=== PATIENT | female | born 1945 | race Hispanic/Latino ===

== ENCOUNTER 2020-05-31 13:55 | Inpatient (IN) | payer MEDICARE ==
[2020-05-31] MEDS ORDERED: ZIPRASIDONE MESYLATE 20 MG VIAL IM PRN (16:21)
[2020-05-31 18:35] LABS: Basophils # (Auto) 0.1 K/mm3 (0.0-0.1); Basophils % (Auto) 0.8 % (0.0-1.8); Eosinophils # (Auto) 0.1 K/mm3 (0.0-0.4); Eosinophils % (Auto) 1.4 % (0.0-4.3); Hematocrit 43.3 % (30.3-42.9); Hemoglobin 14.1 gm/dl (10.1-14.3); Lymphocytes % (Auto) 42.7 % (13.4-35.0); Mean Corpuscular HGB Conc 33 % (30-34); Mean Corpuscular Volume 95 fl (79-97); Monocytes # (Auto) 0.6 K/mm3 (0.0-0.8); Monocytes % (Auto) 8.3 % (0.0-7.3); Platelet Count 344 K/mm3 (140-440); Red Blood Count 4.54 M/mm3 (3.65-5.03); Red Cell Distribution Width 15.2 % (13.2-15.2)
[2020-05-31 18:46] LABS: Albumin 3.8 g/dL (3.9-5); BUN/Creatinine Ratio 16; Blood Urea Nitrogen 11 mg/dL (7-17); Calcium 9.1 mg/dL (8.4-10.2); Chol/HDL Ratio 3.01 %; HDL Cholesterol 72 mg/dL (40-59); Hemolysis Index 16; LDL Cholesterol,Direct 145 mg/dL (50-130)
[2020-05-31 18:47] LABS: Alanine Aminotransferase < 5 units/L (7-56)
[2020-05-31 19:32] LABS: Bacteria,Urine 1+ /HPF (Negative); Bilirubin,Urine NEG (Negative); Blood,Urine NEG (Negative); Color,Urine Yellow (Yellow); Mucus,Urine FEW /HPF; Protein,Urine <15 mg/dL mg/dL (Negative); Urobilinogen,Urine < 2.0 mg/dL (<2.0)
[2020-05-31] MEDS: traZODone 50 MG TAB PO SCH (21:44)
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
[2020-06-01] MEDS ORDERED: ALBUTEROL 2.5 MG/3 ML NEBU IH PRN (09:55)
[2020-06-01] MEDS: AMIODARONE 200 MG TAB PO SCH (10:56)
[2020-06-01] MEDS: APIXABAN 5 MG TAB PO SCH ×2 (10:56→21:12)
[2020-06-01] MEDS: CHOLECALCIFEROL (VIT D3) 1000 UNIT (25 mcg) TAB PO SCH (10:56)
[2020-06-01] MEDS: risperiDONE 0.25 MG TAB PO SCH ×2 (11:47→21:12)
[2020-06-01] MEDS: MULTIVITAMINS ,THERAPEUTIC TAB PO SCH (11:47)
[2020-06-01] MEDS: NICOTINE 21 MG/24 HR PATCH TD SCH (11:47)
[2020-06-01] MEDS: LORazepam 1 MG TAB PO SCH (11:47)
[2020-06-01] MEDS: buPROPion SR 150 MG TAB PO SCH (11:47)
--- NOTE | 2020-06-01 13:30 | Consultation ---
History of Present Illness - Reason for Consult Consult date: 06/01/20 Requesting physician: ROQUE MAYS - History of Present Illness 74 YO Female with Atrial Fib on Therapeutic Anticoagulation, Nicotine Dependence, Dementia, Bipolar Disorder admitted to [facility] for Psychiatric stabilization. Consult placed by Dr. Mays for medical management. Pt seen and evaluated in her room. Pt denies any complaints. No reported nursing events. Pt denies pain, fever, chills, or recent ill contacts. Past History Past Medical History: atrial fib, other (see hpi) Past Surgical History: No surgical history, Other (reviewed) Social history: , smoking Family history: no significant family history (reviewed) Medications and Allergies Allergies Allergy/AdvReac Type Severity Reaction Status Date / Time metoclopramide [From Reglan] Allergy Unknown Verified 05/31/20 14:38 Home Medications Medication Instructions Recorded Confirmed Last Taken Type Albuterol Sulfate [Proair 90 mcg INHALATION Q6H PRN 05/31/20 05/31/20 Unknown History Respiclick] Amiodarone [Cordarone 200 MG TAB] 200 mg PO DAILY 05/31/20 05/31/20 Unknown History Apixaban [Eliquis] 5 mg PO BID 05/31/20 05/31/20 Unknown History Cholecalciferol Vit D3 [Vitamin D3 1,000 units PO DAILY 05/31/20 05/31/20 Unknown History 1,000 UNIT TAB] LORazepam [Ativan] 1 mg PO DAILY 05/31/20 05/31/20 Unknown History Multivitamin Tab [Multiple Vitamin 1 each PO QDAY 05/31/20 05/31/20 Unknown History TAB (Theragran)] Nicotine [Habitrol] 21 mg TD QDAY 05/31/20 05/31/20 05/31/20 10:00 History buPROPion SR [Wellbutrin Sr] 150 mg PO QAM 05/31/20 05/31/20 Unknown History Active Meds: Active Medications Albuterol (Proventil) 2.5 mg IH Q4HRT PRN PRN Reason: Shortness Of Breath Amiodarone HCl (Cordarone) 200 mg PO DAILY [facility] Last Admin: 06/01/20 10:56 Dose: 200 mg Documented by: Apixaban (Eliquis) 5 mg PO BID [facility]; Protocol Last Admin: 06/01/20 10:56 Dose: 5 mg Documented by: Bupropion HCl (Wellbutrin Sr) 150 mg PO QAM [facility] Last Admin: 06/01/20 11:47 Dose: 150 mg Documented by: Cholecalciferol (Vitamin D3) 1,000 unit PO DAILY [facility] Last Admin: 06/01/20 10:56 Dose: 1,000 unit Documented by: Lorazepam (Ativan) 1 mg PO DAILY [facility] Last Admin: 06/01/20 11:47 Dose: 1 mg Documented by: Multivitamins (Theragran Tab) 1 each PO QDAY [facility] Last Admin: 06/01/20 11:47 Dose: 1 each Documented by: Nicotine (Habitrol) 21 mg TD QDAY [facility] Last Admin: 06/01/20 11:47 Dose: 21 mg Documented by: Risperidone (Risperdal) 0.25 mg PO BID [facility] Last Admin: 06/01/20 11:47 Dose: 0.25 mg Documented by: Trazodone HCl (Desyrel) 50 mg PO QHS [facility] Last Admin: 05/31/20 21:44 Dose: 50 mg Documented by: Ziprasidone (Geodon) 10 mg IM Q6H PRN PRN Reason: Agitation Review of Systems Constitutional: no weight loss, no weight gain, no fever, no chills Ears, nose, mouth and throat: no ear pain, no ear discharge, no tinnitis, no decreased hearing, no nose pain Breasts: no change in shape, no swelling, no mass Cardiovascular: no chest pain, no orthopnea, no palpitations, no rapid/irregular heart beat Respiratory: no cough, no cough with sputum, no excessive sputum, no hemoptysis Gastrointestinal: no nausea, no vomiting, no diarrhea, no constipation Genitourinary Female: no pelvic pain, no flank pain Rectal: no pain, no incontinence, no bleeding Musculoskeletal: no neck pain, no shooting arm pain, no arm numbness/tingling, no low back pain, no leg numbness/tingling Integumentary: no rash, no pruritis, no redness, no sores, no wounds Neurological: no paralysis, no tingling, no seizures Psychiatric: no anxiety, no change in sleep habits, no sleep disturbances, no insomnia, no hypersomnia Endocrine: no cold intolerance, no heat intolerance, no polyphagia, no excessive thirst, no polyuria Hematologic/Lymphatic: no easy bruising, no easy bleeding, no lymphadenopathy, no lymphedema Allergic/Immunologic: no urticaria, no allergic rhinitis, no persistent infections Exam - Constitutional Vitals: Temp Pulse Resp BP Pulse Ox 98.2 F 81 20 112/69 89 06/01/20 08:01 06/01/20 08:01 06/01/20 08:01 06/01/20 08:01 06/01/20 08:01 General appearance: Present: mild distress - EENT Eyes: Present: PERRL ENT: hearing intact, clear oral mucosa - Neck Neck: Present: supple, normal ROM - Respiratory Respiratory effort: normal Respiratory: bilateral: CTA - Cardiovascular Rhythm: irregularly irregular Heart Sounds: Present: S1 & S2. Absent: rub, click - Extremities Extremities: pulses symmetrical, No edema Peripheral Pulses: within normal limits - Abdominal General gastrointestinal: Present: soft, non-tender, non-distended, normal bowel sounds Female genitourinary: Present: normal - Integumentary Integumentary: Present: clear, warm, dry - Musculoskeletal Musculoskeletal: gait normal, strength equal bilaterally - Psychiatric Psychiatric: appropriate mood/affect, intact judgment & insight - Neurologic Neurologic: CNII-XII intact, moves all extremities Results - Labs CBC & Chem 7: 05/31/20 17:53 05/31/20 17:53 Labs: Abnormal lab results 05/31/20 05/31/20 05/31/20 Range/Units 17:53 17:53 18:12 Hct 43.3 H (30.3-42.9) % Lymph % (Auto) 42.7 H (13.4-35.0) % [place] % (Auto) 8.3 H (0.0-7.3) % Glucose 110 H (65-100) mg/dL POC Glucose 120 H (70-105) ALT < 5 L (7-56) units/L Albumin 3.8 L (3.9-5) g/dL Cholesterol 217 H (50-199) mg/dL LDL Cholesterol Direct 145 H (50-130) mg/dL HDL Cholesterol 72 H (40-59) mg/dL Assessment and Plan - Patient Problems (1) Atrial fibrillation Current Visit: Yes Status: Acute Qualifiers: Atrial fibrillation type: permanent Qualified Code(s): I48.21 - Permanent atrial fibrillation Plan to address problem: continue Therapeutic anticoagulation, Amiodarone for rate control, supportive care. (2) Nicotine dependence Current Visit: Yes Status: Acute Plan to address problem: Supportive care. smoking cessation, behavior change counseling
[2020-06-01] MEDS: traZODone 50 MG TAB PO SCH (21:11)
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
[2020-06-02] MEDS: risperiDONE 0.25 MG TAB PO SCH ×2 (10:22→22:03)
[2020-06-02] MEDS: MULTIVITAMINS ,THERAPEUTIC TAB PO SCH (10:22)
[2020-06-02] MEDS: buPROPion SR 150 MG TAB PO SCH (10:22)
[2020-06-02] MEDS: NICOTINE 21 MG/24 HR PATCH TD SCH (10:22)
[2020-06-02] MEDS: CHOLECALCIFEROL (VIT D3) 1000 UNIT (25 mcg) TAB PO SCH (12:36)
[2020-06-02] MEDS: APIXABAN 5 MG TAB PO SCH ×2 (12:36→22:03)
[2020-06-02] MEDS: AMIODARONE 200 MG TAB PO SCH (12:36)
[2020-06-02] MEDS: LORazepam 1 MG TAB PO SCH (12:42)
[2020-06-02] MEDS: traZODone 50 MG TAB PO SCH (22:03)
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
[2020-06-03] MEDS: NICOTINE 21 MG/24 HR PATCH TD SCH (09:32)
[2020-06-03] MEDS: LORazepam 1 MG TAB PO SCH (09:33)
[2020-06-03] MEDS: AMIODARONE 200 MG TAB PO SCH (09:33)
[2020-06-03] MEDS: buPROPion SR 150 MG TAB PO SCH (09:33)
[2020-06-03] MEDS: MULTIVITAMINS ,THERAPEUTIC TAB PO SCH (09:33)
[2020-06-03] MEDS: CHOLECALCIFEROL (VIT D3) 1000 UNIT (25 mcg) TAB PO SCH (09:33)
[2020-06-03] MEDS: APIXABAN 5 MG TAB PO SCH ×2 (09:33→21:19)
[2020-06-03] MEDS: risperiDONE 0.25 MG TAB PO SCH ×2 (09:33→21:19)
--- NOTE | 2020-06-03 14:27 | Progress Note ---
Assessment and Plan - Patient Problems (1) Atrial fibrillation Current Visit: Yes Status: Acute Qualifiers: Atrial fibrillation type: permanent Qualified Code(s): I48.21 - Permanent atrial fibrillation Plan to address problem: continue Therapeutic anticoagulation, Amiodarone for rate control, supportive care. (2) Nicotine dependence Current Visit: Yes Status: Acute Plan to address problem: Supportive care. smoking cessation, behavior change counseling History Interval history: 74 YO Female with Atrial Fib on Therapeutic Anticoagulation, Nicotine Dependence, Dementia, Bipolar Disorder. Pt seen and evaluated in the day room. Pt denies any complaints. No reported nursing events. Pt denies pain, fever, chills, or recent ill contacts. Patient is compliant with exam and interview. Hospitalist Physical - Constitutional Vitals: Temp Pulse Resp BP Pulse Ox 98.4 F 73 18 108/64 91 06/03/20 01:56 06/02/20 19:56 06/03/20 01:56 06/02/20 19:56 06/02/20 19:56 General appearance: Present: mild distress - EENT Eyes: Present: PERRL, EOM intact - Neck Neck: Present: supple - Respiratory Respiratory: bilateral: CTA - Cardiovascular Rhythm: regular Heart Sounds: Present: S1 & S2 - Extremities Extremities: no ischemia Peripheral Pulses: within normal limits - Abdominal General gastrointestinal: soft, non-tender, non-distended - Integumentary Integumentary: Present: clear, dry - Psychiatric Psychiatric: appropriate mood/affect, cooperative - Neurologic Neurologic: CNII-XII intact Results - Labs CBC & Chem 7: 05/31/20 17:53 05/31/20 17:53 Labs: Laboratory Last Values WBC 6.9 K/mm3 (4.5-11.0) 05/31/20 17:53 RBC 4.54 M/mm3 (3.65-5.03) 05/31/20 17:53 Hgb 14.1 gm/dl (10.1-14.3) 05/31/20 17:53 Hct 43.3 % (30.3-42.9) H 05/31/20 17:53 MCV 95 fl (79-97) 05/31/20 17:53 MCH 31 pg (28-32) 05/31/20 17:53 MCHC 33 % (30-34) 05/31/20 17:53 RDW 15.2 % (13.2-15.2) 05/31/20 17:53 Plt Count 344 K/mm3 (140-440) 05/31/20 17:53 Lymph % (Auto) 42.7 % (13.4-35.0) H 05/31/20 17:53 [place] % (Auto) 8.3 % (0.0-7.3) H 05/31/20 17:53 Eos % (Auto) 1.4 % (0.0-4.3) 05/31/20 17:53 Baso % (Auto) 0.8 % (0.0-1.8) 05/31/20 17:53 Lymph # 3.0 K/mm3 (1.2-5.4) 05/31/20 17:53 [place] # 0.6 K/mm3 (0.0-0.8) 05/31/20 17:53 Eos # 0.1 K/mm3 (0.0-0.4) 05/31/20 17:53 Baso # 0.1 K/mm3 (0.0-0.1) 05/31/20 17:53 Seg Neutrophils % 46.8 % (40.0-70.0) 05/31/20 17:53 Seg Neutrophils # 3.3 K/mm3 (1.8-7.7) 05/31/20 17:53 Sodium 138 mmol/L (137-145) 05/31/20 17:53 Potassium 4.3 mmol/L (3.6-5.0) 05/31/20 17:53 Chloride 100.8 mmol/L (98-107) 05/31/20 17:53 Carbon Dioxide 25 mmol/L (22-30) 05/31/20 17:53 Anion Gap 17 mmol/L 05/31/20 17:53 BUN 11 mg/dL (7-17) 05/31/20 17:53 Creatinine 0.7 mg/dL (0.7-1.2) 05/31/20 17:53 Estimated GFR > 60 ml/min 05/31/20 17:53 BUN/Creatinine Ratio 16 % 05/31/20 17:53 Glucose 110 mg/dL (65-100) H 05/31/20 17:53 POC Glucose 120 (70-105) H 05/31/20 18:12 Hemoglobin A1c 5.3 % (4-6) 05/31/20 17:53 Calcium 9.1 mg/dL (8.4-10.2) 05/31/20 17:53 Total Bilirubin 0.80 mg/dL (0.1-1.2) 05/31/20 17:53 AST 15 units/L (5-40) 05/31/20 17:53 ALT < 5 units/L (7-56) L 05/31/20 17:53 Alkaline Phosphatase 112 units/L (35-129) 05/31/20 17:53 Total Protein 6.6 g/dL (6.3-8.2) 05/31/20 17:53 Albumin 3.8 g/dL (3.9-5) L 05/31/20 17:53 Albumin/Globulin Ratio 1.4 % 05/31/20 17:53 Triglycerides 137 mg/dL (2-149) 05/31/20 17:53 Cholesterol 217 mg/dL (50-199) H 05/31/20 17:53 LDL Cholesterol Direct 145 mg/dL (50-130) H 05/31/20 17:53 HDL Cholesterol 72 mg/dL (40-59) H 05/31/20 17:53 Cholesterol/HDL Ratio 3.01 % 05/31/20 17:53 TSH 3.330 mlU/mL (0.270-4.200) 05/31/20 17:53 Urine Color Yellow (Yellow) 05/31/20 18:06 Urine Turbidity Clear (Clear) 05/31/20 18:06 Urine pH 5.0 (5.0-7.0) 05/31/20 18:06 Ur Specific [place] 1.014 (1.003-1.030) 05/31/20 18:06 Urine Protein <15 mg/dl mg/dL (Negative) 05/31/20 18:06 Urine Glucose (UA) Neg mg/dL (Negative) 05/31/20 18:06 Urine Ketones Neg mg/dL (Negative) 05/31/20 18:06 Urine Blood Neg (Negative) 05/31/20 18:06 Urine Nitrite Neg (Negative) 05/31/20 18:06 Urine Bilirubin Neg (Negative) 05/31/20 18:06 Urine Urobilinogen < 2.0 mg/dL (<2.0) 05/31/20 18:06 Ur Leukocyte Esterase Neg (Negative) 05/31/20 18:06 Urine WBC (Auto) 4.0 /HPF (0.0-6.0) 05/31/20 18:06 Urine RBC (Auto) 1.0 /HPF (0.0-6.0) 05/31/20 18:06 U Epithel Cells (Auto) 4.0 /HPF (0-13.0) 05/31/20 18:06 Urine Bacteria (Auto) 1+ /HPF (Negative) 05/31/20 18:06 Urine Mucus Few /HPF 05/31/20 18:06 [place]/IV: Voiding Method Toilet Active Medications - Current Medications Current Medications: Generic Name Dose Route Start Last Admin Trade Name Freq PRN Reason Stop Dose Admin Albuterol 2.5 mg 06/01/20 09:55 Proventil IH Q4HRT PRN Shortness Of Breath Amiodarone HCl 200 mg 06/01/20 10:00 06/03/20 09:33 Cordarone PO 200 mg DAILY [facility] Administration Apixaban 5 mg 06/01/20 10:00 06/03/20 09:33 Eliquis PO 5 mg BID [facility] Administration Protocol Bupropion HCl 150 mg 06/01/20 10:00 06/03/20 09:33 Wellbutrin Sr PO 150 mg QAM [facility] Administration Cholecalciferol 1,000 unit 06/01/20 11:00 06/03/20 09:33 Vitamin D3 PO 1,000 unit DAILY [facility] Administration Lorazepam 1 mg 06/01/20 10:00 06/03/20 09:33 Ativan PO 1 mg DAILY [facility] Administration Multivitamins 1 each 06/01/20 10:00 06/03/20 09:33 Theragran Tab PO 1 each QDAY [facility] Administration Nicotine 21 mg 06/01/20 10:00 06/03/20 09:32 Habitrol TD 21 mg QDAY [facility] Administration Risperidone 0.25 mg 06/01/20 10:00 06/03/20 09:33 Risperdal PO 0.25 mg BID [facility] Administration Trazodone HCl 50 mg 05/31/20 22:00 06/02/20 22:03 Desyrel PO 50 mg QHS [facility] Administration Ziprasidone 10 mg 05/31/20 16:21 Geodon IM Q6H PRN Agitation
[2020-06-03] MEDS: traZODone 50 MG TAB PO SCH (21:19)
--- NOTE | 2020-06-04 08:11 | Progress Note ---
Subjective Date of service: 06/04/20 Principal diagnosis: Dementia w/Behavioral Disturbance Subjective Comment: The patient's medical record was reviewed and the patient's progress was discussed with the nursing staff. During my interview with the patient she was sitting in the dayroom. She patient is a/o x 3. She is calm, cooperative and pleasant. She says her mood is "better." She denies SI/HI. She states, "no, I've given up on my . I aint gone kill him." The patient says she slept "well." Reason for continued inpatient treatment: The patient is improving, but recently expressed thoughts of wanting to kill her . Will continue to treat and stabilize to plan for a safe discharge. REVIEW OF SYSTEMS Constitutional: Negative for weight loss ENT: Negative for stridor Respiratory: Pos for cough All other systems reviewed and are negative, except respiratory MENTAL STATUS EXAMINATION General Appearance: Dressed appropriately Behavior: Calm, cooperative. Good eye contact Mood: "better" Affect: Congruent with stated mood Speech: Normal tone and pace Thought Process: Goal directed Thought Content: Suicidal Ideation: Denies Homicidal Ideation: Denies at present Hallucinations: Denies Delusions: Denies Insight and Judgment: Limited Memory/Cognition: Limited Assessment Bipolar Disorder w/o Psychotic Features Dementia with Behavioral Disturbance Treatment Plan Patient will be admitted for inpatient psychiatric evaluation, medication adjustment and close monitoring The patient's behavior, mood, sleep and appetite will be closely monitored. Patient will be enrolled in individual and group therapeutic sessions and encouraged to attend. Patient will be provided with a safe and structured environment. Patient's physical health needs will be addressed by the Hospitalist. Hospitalist Consulted Labs including CBC, CMP, Lipid profile and Hemoglobin A1C ordered Social Assessment will be completed and the Gold Leaf Laborer will work with patient and family to ensure a suitable and safe disposition Medication adjustment will be made as clinically indicated No changes made today Usual Wellness Amish/Preservation: - Start Trazodone 50 mg po QHS - Start Melatonin 5 mg po QHS to promote circadian rhythm This is to certify that Ginette Ahmadi is a 74 y/o female admitted for Bipolar Disorder and Dementia with Behavioral Disturbance and will be given treatment that will treat and improve her condition. The patient agreed on the treatment plan, understood the risk, benefit, alternative treatment, potential consequence of no treatment, and gave informed consent. Estimated period of time patient will need to remain in the hospital: [4] Plan for post-hospital care: [outpatient] Medications and Allergies Allergies Allergy/AdvReac Type Severity Reaction Status Date / Time metoclopramide [From Reglan] Allergy Unknown Verified 05/31/20 14:38 Home Medications Medication Instructions Recorded Confirmed Last Taken Type Albuterol Sulfate [Proair 90 mcg INHALATION Q6H PRN 05/31/20 05/31/20 Unknown History Respiclick] Amiodarone [Cordarone 200 MG TAB] 200 mg PO DAILY 05/31/20 05/31/20 Unknown History Apixaban [Eliquis] 5 mg PO BID 05/31/20 05/31/20 Unknown History Cholecalciferol Vit D3 [Vitamin D3 1,000 units PO DAILY 05/31/20 05/31/20 Unknown History 1,000 UNIT TAB] LORazepam [Ativan] 1 mg PO DAILY 05/31/20 05/31/20 Unknown History Multivitamin Tab [Multiple Vitamin 1 each PO QDAY 05/31/20 05/31/20 Unknown History TAB (Theragran)] Nicotine [Habitrol] 21 mg TD QDAY 05/31/20 05/31/20 05/31/20 10:00 History buPROPion SR [Wellbutrin Sr] 150 mg PO QAM 05/31/20 05/31/20 Unknown History Active Meds: Active Medications Albuterol (Proventil) 2.5 mg IH Q4HRT PRN PRN Reason: Shortness Of Breath Amiodarone HCl (Cordarone) 200 mg PO DAILY [facility] Last Admin: 06/03/20 09:33 Dose: 200 mg Documented by: Apixaban (Eliquis) 5 mg PO BID [facility]; Protocol Last Admin: 06/03/20 21:19 Dose: 5 mg Documented by: Bupropion HCl (Wellbutrin Sr) 150 mg PO QAM [facility] Last Admin: 06/03/20 09:33 Dose: 150 mg Documented by: Cholecalciferol (Vitamin D3) 1,000 unit PO DAILY [facility] Last Admin: 06/03/20 09:33 Dose: 1,000 unit Documented by: Lorazepam (Ativan) 1 mg PO DAILY [facility] Last Admin: 06/03/20 09:33 Dose: 1 mg Documented by: Multivitamins (Theragran Tab) 1 each PO QDAY [facility] Last Admin: 06/03/20 09:33 Dose: 1 each Documented by: Nicotine (Habitrol) 21 mg TD QDAY [facility] Last Admin: 06/03/20 09:32 Dose: 21 mg Documented by: Risperidone (Risperdal) 0.25 mg PO BID [facility] Last Admin: 06/03/20 21:19 Dose: 0.25 mg Documented by: Trazodone HCl (Desyrel) 50 mg PO QHS [facility] Last Admin: 06/03/20 21:19 Dose: 50 mg Documented by: Ziprasidone (Geodon) 10 mg IM Q6H PRN PRN Reason: Agitation Results - Results Labs/Vitals: Laboratory Last Values WBC 6.9 K/mm3 (4.5-11.0) 05/31/20 17:53 RBC 4.54 M/mm3 (3.65-5.03) 05/31/20 17:53 Hgb 14.1 gm/dl (10.1-14.3) 05/31/20 17:53 Hct 43.3 % (30.3-42.9) H 05/31/20 17:53 MCV 95 fl (79-97) 05/31/20 17:53 MCH 31 pg (28-32) 05/31/20 17:53 MCHC 33 % (30-34) 05/31/20 17:53 RDW 15.2 % (13.2-15.2) 05/31/20 17:53 Plt Count 344 K/mm3 (140-440) 05/31/20 17:53 Lymph % (Auto) 42.7 % (13.4-35.0) H 05/31/20 17:53 [place] % (Auto) 8.3 % (0.0-7.3) H 05/31/20 17:53 Eos % (Auto) 1.4 % (0.0-4.3) 05/31/20 17:53 Baso % (Auto) 0.8 % (0.0-1.8) 05/31/20 17:53 Lymph # 3.0 K/mm3 (1.2-5.4) 05/31/20 17:53 [place] # 0.6 K/mm3 (0.0-0.8) 05/31/20 17:53 Eos # 0.1 K/mm3 (0.0-0.4) 05/31/20 17:53 Baso # 0.1 K/mm3 (0.0-0.1) 05/31/20 17:53 Seg Neutrophils % 46.8 % (40.0-70.0) 05/31/20 17:53 Seg Neutrophils # 3.3 K/mm3 (1.8-7.7) 05/31/20 17:53 Sodium 138 mmol/L (137-145) 05/31/20 17:53 Potassium 4.3 mmol/L (3.6-5.0) 05/31/20 17:53 Chloride 100.8 mmol/L (98-107) 05/31/20 17:53 Carbon Dioxide 25 mmol/L (22-30) 05/31/20 17:53 Anion Gap 17 mmol/L 05/31/20 17:53 BUN 11 mg/dL (7-17) 05/31/20 17:53 Creatinine 0.7 mg/dL (0.7-1.2) 05/31/20 17:53 Estimated GFR > 60 ml/min 05/31/20 17:53 BUN/Creatinine Ratio 16 % 05/31/20 17:53 Glucose 110 mg/dL (65-100) H 05/31/20 17:53 POC Glucose 120 (70-105) H 05/31/20 18:12 Hemoglobin A1c 5.3 % (4-6) 05/31/20 17:53 Calcium 9.1 mg/dL (8.4-10.2) 05/31/20 17:53 Total Bilirubin 0.80 mg/dL (0.1-1.2) 05/31/20 17:53 AST 15 units/L (5-40) 05/31/20 17:53 ALT < 5 units/L (7-56) L 05/31/20 17:53 Alkaline Phosphatase 112 units/L (35-129) 05/31/20 17:53 Total Protein 6.6 g/dL (6.3-8.2) 05/31/20 17:53 Albumin 3.8 g/dL (3.9-5) L 05/31/20 17:53 Albumin/Globulin Ratio 1.4 % 05/31/20 17:53 Triglycerides 137 mg/dL (2-149) 05/31/20 17:53 Cholesterol 217 mg/dL (50-199) H 05/31/20 17:53 LDL Cholesterol Direct 145 mg/dL (50-130) H 05/31/20 17:53 HDL Cholesterol 72 mg/dL (40-59) H 05/31/20 17:53 Cholesterol/HDL Ratio 3.01 % 05/31/20 17:53 TSH 3.330 mlU/mL (0.270-4.200) 05/31/20 17:53 Urine Color Yellow (Yellow) 05/31/20 18:06 Urine Turbidity Clear (Clear) 05/31/20 18:06 Urine pH 5.0 (5.0-7.0) 05/31/20 18:06 Ur Specific [place] 1.014 (1.003-1.030) 05/31/20 18:06 Urine Protein <15 mg/dl mg/dL (Negative) 05/31/20 18:06 Urine Glucose (UA) Neg mg/dL (Negative) 05/31/20 18:06 Urine Ketones Neg mg/dL (Negative) 05/31/20 18:06 Urine Blood Neg (Negative) 05/31/20 18:06 Urine Nitrite Neg (Negative) 05/31/20 18:06 Urine Bilirubin Neg (Negative) 05/31/20 18:06 Urine Urobilinogen < 2.0 mg/dL (<2.0) 05/31/20 18:06 Ur Leukocyte Esterase Neg (Negative) 05/31/20 18:06 Urine WBC (Auto) 4.0 /HPF (0.0-6.0) 05/31/20 18:06 Urine RBC (Auto) 1.0 /HPF (0.0-6.0) 05/31/20 18:06 U Epithel Cells (Auto) 4.0 /HPF (0-13.0) 05/31/20 18:06 Urine Bacteria (Auto) 1+ /HPF (Negative) 05/31/20 18:06 Urine Mucus Few /HPF 05/31/20 18:06 Last Vital Signs Temp 98.5 F 06/03/20 22:00 Pulse 83 06/03/20 22:00 Resp 18 06/03/20 22:00 BP 135/54 06/03/20 22:00 Pulse Ox 95 06/03/20 22:00
[2020-06-04] MEDS: NICOTINE 21 MG/24 HR PATCH TD SCH (09:36)
[2020-06-04] MEDS: CHOLECALCIFEROL (VIT D3) 1000 UNIT (25 mcg) TAB PO SCH (09:37)
[2020-06-04] MEDS: LORazepam 1 MG TAB PO SCH (09:37)
[2020-06-04] MEDS: MULTIVITAMINS ,THERAPEUTIC TAB PO SCH (09:37)
[2020-06-04] MEDS: risperiDONE 0.25 MG TAB PO SCH ×2 (09:37→21:42)
[2020-06-04] MEDS: APIXABAN 5 MG TAB PO SCH ×2 (09:37→21:42)
[2020-06-04] MEDS: buPROPion SR 150 MG TAB PO SCH (09:37)
[2020-06-04] MEDS: AMIODARONE 200 MG TAB PO SCH (09:37)
[2020-06-04] MEDS: traZODone 50 MG TAB PO SCH (22:21)
--- NOTE | 2020-06-05 07:17 | Progress Note ---
Subjective Date of service: 06/05/20 Principal diagnosis: Dementia w/Behavioral Disturbance Subjective Comment: Nurse Note: Patient sit in the activity room, interacting well with her peers. Pt compliant with medications, denies si/hi and avh. 02 sat at 96% on room air. No acute distress noted. Will continue to monitor. PSYCH HPI Pleasant miss Morfin reports feeling good today, thou complained about only getting 3-4 hours of sleep otherwise, good appetite, and compliant with her medications. Patient also knows it May 2020, asked questions about when she can be discharged home. Reason for continued inpatient treatment: Poor sleep pattern, otherwise patient behavior has been stable without any disturbances reported, compliant with all medications. Will plan with team about safety discharge plans tomorrow. MENTAL STATUS EXAMINATION General Appearance and Behavior: Age appropriate, good hygiene, wearing appropriate clothes, l good eye contact, cooperative politewith questioning. Cooperation: Participating/engaged Psychomotor Behavior: unremarkable and within normal limits Mood: Good Affect and affective range: congruent with mood Thought Process: Logical Thought Content: Within reality Speech: Normal volume, Regular rate and rhythm Intellectual Functioning: Average Suicidal Ideation: Denies SI Homicidal Ideation: Denies HI Impulse Control:Unimpaired Insight and Judgment: Normal insight and judgment Memory: ferry terminal supervisor memory intact, fair short term memory Attention: Normal Orientation: Alert, oriented Diagnoses: Assessment and Plan - Patient Problems (1) Dementia with behavioral disturbance Current Visit: Yes Status: Acute Treatment Plan melatonin 10 mg QHS. Continue current medications Patient will be admitted for inpatient psychiatric evaluation, medication adjustment and close monitoring The patient's behavior, mood, sleep and appetite will be closely monitored. Patient will be enrolled in individual and group therapeutic sessions and encouraged to attend. Patient will be provided with a safe and structured environment. Patient's physical health needs will be addressed by the Hospitalist. Hospitalist Consulted Labs including CBC, CMP, Lipid profile and Hemoglobin A1C ordered Social Assessment will be completed and the Second Officer will work with patient and family to ensure a suitable and safe disposition Medication adjustment will be made as clinically indicated Usual Wellness Buddhism/Preservation: - Start Trazodone 50 mg po QHS & 50 mg po QHS PRN between 10 PM & 2 AM for insomnia - Start Melatonin 5 mg po QHS to promote circadian rhythm - Start Bern-3 for brain health, reduce impulsivity, and as adjunctive treatment for mood disorder, continue upon discharge given overall benefits. - Start B1 prophylaxis with 200 mg po for 5 days The patient agreed on the treatment plan, understood the risk, benefit, alternative treatment, potential consequence of no treatment, and gave informed consent. Initial Certification This certifies that Galdino Peng is a 74y/o female who was admitted for Bipolar Disorder with Psychotic Features. Estimated period of time patient will need to remain in the hospital: [1] Plan for post-hospital care: [outpatient] Assessment and Plan - Patient Problems (1) Dementia with behavioral disturbance Current Visit: Yes Status: Acute Medications and Allergies Allergies Allergy/AdvReac Type Severity Reaction Status Date / Time metoclopramide [From Reglan] Allergy Unknown Verified 05/31/20 14:38 Home Medications Medication Instructions Recorded Confirmed Last Taken Type Albuterol Sulfate [Proair 90 mcg INHALATION Q6H PRN 05/31/20 05/31/20 Unknown History Respiclick] Amiodarone [Cordarone 200 MG TAB] 200 mg PO DAILY 05/31/20 05/31/20 Unknown History Apixaban [Eliquis] 5 mg PO BID 05/31/20 05/31/20 Unknown History Cholecalciferol Vit D3 [Vitamin D3 1,000 units PO DAILY 05/31/20 05/31/20 Unknown History 1,000 UNIT TAB] LORazepam [Ativan] 1 mg PO DAILY 05/31/20 05/31/20 Unknown History Multivitamin Tab [Multiple Vitamin 1 each PO QDAY 05/31/20 05/31/20 Unknown History TAB (Theragran)] Nicotine [Habitrol] 21 mg TD QDAY 05/31/20 05/31/20 05/31/20 10:00 History buPROPion SR [Wellbutrin Sr] 150 mg PO QAM 05/31/20 05/31/20 Unknown History Active Meds: Active Medications Albuterol (Proventil) 2.5 mg IH Q4HRT PRN PRN Reason: Shortness Of Breath Amiodarone HCl (Cordarone) 200 mg PO DAILY [facility] Last Admin: 06/04/20 09:37 Dose: 200 mg Documented by: Apixaban (Eliquis) 5 mg PO BID [facility]; Protocol Last Admin: 06/04/20 21:42 Dose: 5 mg Documented by: Bupropion HCl (Wellbutrin Sr) 150 mg PO QAM [facility] Last Admin: 06/04/20 09:37 Dose: 150 mg Documented by: Cholecalciferol (Vitamin D3) 1,000 unit PO DAILY [facility] Last Admin: 06/04/20 09:37 Dose: 1,000 unit Documented by: Lorazepam (Ativan) 1 mg PO DAILY [facility] Last Admin: 06/04/20 09:37 Dose: 1 mg Documented by: Multivitamins (Theragran Tab) 1 each PO QDAY [facility] Last Admin: 06/04/20 09:37 Dose: 1 each Documented by: Nicotine (Habitrol) 21 mg TD QDAY [facility] Last Admin: 06/04/20 09:36 Dose: 21 mg Documented by: Risperidone (Risperdal) 0.25 mg PO BID [facility] Last Admin: 06/04/20 21:42 Dose: 0.25 mg Documented by: Trazodone HCl (Desyrel) 50 mg PO QHS [facility] Last Admin: 06/04/20 22:21 Dose: Not Given Documented by: Ziprasidone (Geodon) 10 mg IM Q6H PRN PRN Reason: Agitation Results - Results Labs/Vitals: Laboratory Last Values WBC 6.9 K/mm3 (4.5-11.0) 05/31/20 17:53 RBC 4.54 M/mm3 (3.65-5.03) 05/31/20 17:53 Hgb 14.1 gm/dl (10.1-14.3) 05/31/20 17:53 Hct 43.3 % (30.3-42.9) H 05/31/20 17:53 MCV 95 fl (79-97) 05/31/20 17:53 MCH 31 pg (28-32) 05/31/20 17:53 MCHC 33 % (30-34) 05/31/20 17:53 RDW 15.2 % (13.2-15.2) 05/31/20 17:53 Plt Count 344 K/mm3 (140-440) 05/31/20 17:53 Lymph % (Auto) 42.7 % (13.4-35.0) H 05/31/20 17:53 [place] % (Auto) 8.3 % (0.0-7.3) H 05/31/20 17:53 Eos % (Auto) 1.4 % (0.0-4.3) 05/31/20 17:53 Baso % (Auto) 0.8 % (0.0-1.8) 05/31/20 17:53 Lymph # 3.0 K/mm3 (1.2-5.4) 05/31/20 17:53 [place] # 0.6 K/mm3 (0.0-0.8) 05/31/20 17:53 Eos # 0.1 K/mm3 (0.0-0.4) 05/31/20 17:53 Baso # 0.1 K/mm3 (0.0-0.1) 05/31/20 17:53 Seg Neutrophils % 46.8 % (40.0-70.0) 05/31/20 17:53 Seg Neutrophils # 3.3 K/mm3 (1.8-7.7) 05/31/20 17:53 Sodium 138 mmol/L (137-145) 05/31/20 17:53 Potassium 4.3 mmol/L (3.6-5.0) 05/31/20 17:53 Chloride 100.8 mmol/L (98-107) 05/31/20 17:53 Carbon Dioxide 25 mmol/L (22-30) 05/31/20 17:53 Anion Gap 17 mmol/L 05/31/20 17:53 BUN 11 mg/dL (7-17) 05/31/20 17:53 Creatinine 0.7 mg/dL (0.7-1.2) 05/31/20 17:53 Estimated GFR > 60 ml/min 05/31/20 17:53 BUN/Creatinine Ratio 16 % 05/31/20 17:53 Glucose 110 mg/dL (65-100) H 05/31/20 17:53 POC Glucose 120 (70-105) H 05/31/20 18:12 Hemoglobin A1c 5.3 % (4-6) 05/31/20 17:53 Calcium 9.1 mg/dL (8.4-10.2) 05/31/20 17:53 Total Bilirubin 0.80 mg/dL (0.1-1.2) 05/31/20 17:53 AST 15 units/L (5-40) 05/31/20 17:53 ALT < 5 units/L (7-56) L 05/31/20 17:53 Alkaline Phosphatase 112 units/L (35-129) 05/31/20 17:53 Total Protein 6.6 g/dL (6.3-8.2) 05/31/20 17:53 Albumin 3.8 g/dL (3.9-5) L 05/31/20 17:53 Albumin/Globulin Ratio 1.4 % 05/31/20 17:53 Triglycerides 137 mg/dL (2-149) 05/31/20 17:53 Cholesterol 217 mg/dL (50-199) H 05/31/20 17:53 LDL Cholesterol Direct 145 mg/dL (50-130) H 05/31/20 17:53 HDL Cholesterol 72 mg/dL (40-59) H 05/31/20 17:53 Cholesterol/HDL Ratio 3.01 % 05/31/20 17:53 TSH 3.330 mlU/mL (0.270-4.200) 05/31/20 17:53 Urine Color Yellow (Yellow) 05/31/20 18:06 Urine Turbidity Clear (Clear) 05/31/20 18:06 Urine pH 5.0 (5.0-7.0) 05/31/20 18:06 Ur Specific [place] 1.014 (1.003-1.030) 05/31/20 18:06 Urine Protein <15 mg/dl mg/dL (Negative) 05/31/20 18:06 Urine Glucose (UA) Neg mg/dL (Negative) 05/31/20 18:06 Urine Ketones Neg mg/dL (Negative) 05/31/20 18:06 Urine Blood Neg (Negative) 05/31/20 18:06 Urine Nitrite Neg (Negative) 05/31/20 18:06 Urine Bilirubin Neg (Negative) 05/31/20 18:06 Urine Urobilinogen < 2.0 mg/dL (<2.0) 05/31/20 18:06 Ur Leukocyte Esterase Neg (Negative) 05/31/20 18:06 Urine WBC (Auto) 4.0 /HPF (0.0-6.0) 05/31/20 18:06 Urine RBC (Auto) 1.0 /HPF (0.0-6.0) 05/31/20 18:06 U Epithel Cells (Auto) 4.0 /HPF (0-13.0) 05/31/20 18:06 Urine Bacteria (Auto) 1+ /HPF (Negative) 05/31/20 18:06 Urine Mucus Few /HPF 05/31/20 18:06 Last Vital Signs Temp 98.1 F 06/04/20 20:27 Pulse 75 06/04/20 20:27 Resp 18 06/04/20 20:27 BP 118/65 06/04/20 20:27 Pulse Ox 94 06/04/20 20:27
[2020-06-05] MEDS: buPROPion SR 150 MG TAB PO SCH (09:45)
[2020-06-05] MEDS: NICOTINE 21 MG/24 HR PATCH TD SCH (09:45)
[2020-06-05] MEDS: CHOLECALCIFEROL (VIT D3) 1000 UNIT (25 mcg) TAB PO SCH (09:45)
[2020-06-05] MEDS: MULTIVITAMINS ,THERAPEUTIC TAB PO SCH (09:45)
[2020-06-05] MEDS: risperiDONE 0.25 MG TAB PO SCH ×2 (09:45→21:04)
[2020-06-05] MEDS: LORazepam 1 MG TAB PO SCH (09:45)
[2020-06-05] MEDS: APIXABAN 5 MG TAB PO SCH ×2 (09:46→21:05)
[2020-06-05] MEDS: AMIODARONE 200 MG TAB PO SCH (09:46)
--- NOTE | 2020-06-05 18:50 | Progress Note ---
Assessment and Plan - Patient Problems (1) Atrial fibrillation Current Visit: Yes Status: Acute Qualifiers: Atrial fibrillation type: permanent Qualified Code(s): I48.21 - Permanent atrial fibrillation Plan to address problem: continue Therapeutic anticoagulation, Amiodarone for rate control, supportive care. (2) Nicotine dependence Current Visit: Yes Status: Acute Plan to address problem: Supportive care. smoking cessation, behavior change counseling History Interval history: 74 YO Female with Atrial Fib on Therapeutic Anticoagulation and rate control therapy with amiodarone, Nicotine Dependence, Dementia, Bipolar Disorder. Pt seen and evaluated in the day room today. Pt denies any complaints. Patient is resting comfortably. No reported nursing events. Pt denies pain. Patient is compliant with exam and interview. Hospitalist Physical - Constitutional Vitals: Temp Pulse Resp BP Pulse Ox 98.4 F 70 18 119/70 91 06/05/20 08:07 06/05/20 08:07 06/05/20 08:07 06/05/20 08:07 06/05/20 08:07 General appearance: Present: mild distress - EENT Eyes: Present: PERRL, EOM intact - Neck Neck: Present: supple - Respiratory Respiratory effort: normal Respiratory: bilateral: CTA - Cardiovascular Rhythm: irregularly irregular - Extremities Extremities: no ischemia Peripheral Pulses: within normal limits - Abdominal General gastrointestinal: soft, non-tender, non-distended - Integumentary Integumentary: Present: clear, dry - Psychiatric Psychiatric: cooperative - Neurologic Neurologic: CNII-XII intact Results - Labs CBC & Chem 7: 05/31/20 17:53 05/31/20 17:53 Labs: Laboratory Last Values WBC 6.9 K/mm3 (4.5-11.0) 05/31/20 17:53 RBC 4.54 M/mm3 (3.65-5.03) 05/31/20 17:53 Hgb 14.1 gm/dl (10.1-14.3) 05/31/20 17:53 Hct 43.3 % (30.3-42.9) H 05/31/20 17:53 MCV 95 fl (79-97) 05/31/20 17:53 MCH 31 pg (28-32) 05/31/20 17:53 MCHC 33 % (30-34) 05/31/20 17:53 RDW 15.2 % (13.2-15.2) 05/31/20 17:53 Plt Count 344 K/mm3 (140-440) 05/31/20 17:53 Lymph % (Auto) 42.7 % (13.4-35.0) H 05/31/20 17:53 [place] % (Auto) 8.3 % (0.0-7.3) H 05/31/20 17:53 Eos % (Auto) 1.4 % (0.0-4.3) 05/31/20 17:53 Baso % (Auto) 0.8 % (0.0-1.8) 05/31/20 17:53 Lymph # 3.0 K/mm3 (1.2-5.4) 05/31/20 17:53 [place] # 0.6 K/mm3 (0.0-0.8) 05/31/20 17:53 Eos # 0.1 K/mm3 (0.0-0.4) 05/31/20 17:53 Baso # 0.1 K/mm3 (0.0-0.1) 05/31/20 17:53 Seg Neutrophils % 46.8 % (40.0-70.0) 05/31/20 17:53 Seg Neutrophils # 3.3 K/mm3 (1.8-7.7) 05/31/20 17:53 Sodium 138 mmol/L (137-145) 05/31/20 17:53 Potassium 4.3 mmol/L (3.6-5.0) 05/31/20 17:53 Chloride 100.8 mmol/L (98-107) 05/31/20 17:53 Carbon Dioxide 25 mmol/L (22-30) 05/31/20 17:53 Anion Gap 17 mmol/L 05/31/20 17:53 BUN 11 mg/dL (7-17) 05/31/20 17:53 Creatinine 0.7 mg/dL (0.7-1.2) 05/31/20 17:53 Estimated GFR > 60 ml/min 05/31/20 17:53 BUN/Creatinine Ratio 16 % 05/31/20 17:53 Glucose 110 mg/dL (65-100) H 05/31/20 17:53 POC Glucose 120 (70-105) H 05/31/20 18:12 Hemoglobin A1c 5.3 % (4-6) 05/31/20 17:53 Calcium 9.1 mg/dL (8.4-10.2) 05/31/20 17:53 Total Bilirubin 0.80 mg/dL (0.1-1.2) 05/31/20 17:53 AST 15 units/L (5-40) 05/31/20 17:53 ALT < 5 units/L (7-56) L 05/31/20 17:53 Alkaline Phosphatase 112 units/L (35-129) 05/31/20 17:53 Total Protein 6.6 g/dL (6.3-8.2) 05/31/20 17:53 Albumin 3.8 g/dL (3.9-5) L 05/31/20 17:53 Albumin/Globulin Ratio 1.4 % 05/31/20 17:53 Triglycerides 137 mg/dL (2-149) 05/31/20 17:53 Cholesterol 217 mg/dL (50-199) H 05/31/20 17:53 LDL Cholesterol Direct 145 mg/dL (50-130) H 05/31/20 17:53 HDL Cholesterol 72 mg/dL (40-59) H 05/31/20 17:53 Cholesterol/HDL Ratio 3.01 % 05/31/20 17:53 TSH 3.330 mlU/mL (0.270-4.200) 05/31/20 17:53 Urine Color Yellow (Yellow) 05/31/20 18:06 Urine Turbidity Clear (Clear) 05/31/20 18:06 Urine pH 5.0 (5.0-7.0) 05/31/20 18:06 Ur Specific [place] 1.014 (1.003-1.030) 05/31/20 18:06 Urine Protein <15 mg/dl mg/dL (Negative) 05/31/20 18:06 Urine Glucose (UA) Neg mg/dL (Negative) 05/31/20 18:06 Urine Ketones Neg mg/dL (Negative) 05/31/20 18:06 Urine Blood Neg (Negative) 05/31/20 18:06 Urine Nitrite Neg (Negative) 05/31/20 18:06 Urine Bilirubin Neg (Negative) 05/31/20 18:06 Urine Urobilinogen < 2.0 mg/dL (<2.0) 05/31/20 18:06 Ur Leukocyte Esterase Neg (Negative) 05/31/20 18:06 Urine WBC (Auto) 4.0 /HPF (0.0-6.0) 05/31/20 18:06 Urine RBC (Auto) 1.0 /HPF (0.0-6.0) 05/31/20 18:06 U Epithel Cells (Auto) 4.0 /HPF (0-13.0) 05/31/20 18:06 Urine Bacteria (Auto) 1+ /HPF (Negative) 05/31/20 18:06 Urine Mucus Few /HPF 05/31/20 18:06 Negro/IV: Voiding Method Toilet Active Medications - Current Medications Current Medications: Generic Name Dose Route Start Last Admin Trade Name Freq PRN Reason Stop Dose Admin Albuterol 2.5 mg 06/01/20 09:55 Proventil IH Q4HRT PRN Shortness Of Breath Amiodarone HCl 200 mg 06/01/20 10:00 06/05/20 09:46 Cordarone PO 200 mg DAILY [facility] Administration Apixaban 5 mg 06/01/20 10:00 06/05/20 09:46 Eliquis PO 5 mg BID [facility] Administration Protocol Bupropion HCl 150 mg 06/01/20 10:00 06/05/20 09:45 Wellbutrin Sr PO 150 mg QAM [facility] Administration Cholecalciferol 1,000 unit 06/01/20 11:00 06/05/20 09:45 Vitamin D3 PO 1,000 unit DAILY [facility] Administration Lorazepam 1 mg 06/01/20 10:00 06/05/20 09:45 Ativan PO 1 mg DAILY [facility] Administration Melatonin 10 mg 06/05/20 22:00 Melatonin PO QHS [facility] Multivitamins 1 each 06/01/20 10:00 06/05/20 09:45 Theragran Tab PO 1 each QDAY [facility] Administration Nicotine 21 mg 06/01/20 10:00 06/05/20 09:45 Habitrol TD 21 mg QDAY [facility] Administration Risperidone 0.25 mg 06/01/20 10:00 06/05/20 09:45 Risperdal PO 0.25 mg BID [facility] Administration Trazodone HCl 50 mg 05/31/20 22:00 06/04/20 22:21 Desyrel PO Not Given QHS [facility] Ziprasidone 10 mg 05/31/20 16:21 Geodon IM Q6H PRN Agitation
--- NOTE | 2020-06-05 18:52 | Progress Note ---
Assessment and Plan - Patient Problems (1) Atrial fibrillation Current Visit: Yes Status: Acute Qualifiers: Atrial fibrillation type: permanent Qualified Code(s): I48.21 - Permanent atrial fibrillation Plan to address problem: continue Therapeutic anticoagulation, Amiodarone for rate control, supportive care. (2) Nicotine dependence Current Visit: Yes Status: Acute Plan to address problem: Supportive care. smoking cessation, behavior change counseling History Interval history: 74 YO Female with Atrial Fib on Therapeutic Anticoagulation and rate control therapy with Amiodarone, Nicotine Dependence, Dementia, Bipolar Disorder. Pt seen and evaluated in the day room. Pt denies any new complaints. Patient is resting comfortably. No reported nursing events. Pt denies pain. Patient is compliant with exam and interview. Hospitalist Physical - Constitutional Vitals: Temp Pulse Resp BP Pulse Ox 98.4 F 70 18 119/70 91 06/05/20 08:07 06/05/20 08:07 06/05/20 08:07 06/05/20 08:07 06/05/20 08:07 General appearance: Present: mild distress - EENT Eyes: Present: PERRL, EOM intact ENT: hearing intact - Neck Neck: Present: supple - Respiratory Respiratory effort: normal Respiratory: bilateral: CTA - Cardiovascular Rhythm: irregularly irregular - Extremities Extremities: no ischemia Peripheral Pulses: within normal limits - Abdominal General gastrointestinal: soft, non-tender, non-distended - Integumentary Integumentary: Present: clear, dry - Psychiatric Psychiatric: cooperative - Neurologic Neurologic: CNII-XII intact Results - Labs CBC & Chem 7: 05/31/20 17:53 05/31/20 17:53 Labs: Laboratory Last Values WBC 6.9 K/mm3 (4.5-11.0) 05/31/20 17:53 RBC 4.54 M/mm3 (3.65-5.03) 05/31/20 17:53 Hgb 14.1 gm/dl (10.1-14.3) 05/31/20 17:53 Hct 43.3 % (30.3-42.9) H 05/31/20 17:53 MCV 95 fl (79-97) 05/31/20 17:53 MCH 31 pg (28-32) 05/31/20 17:53 MCHC 33 % (30-34) 05/31/20 17:53 RDW 15.2 % (13.2-15.2) 05/31/20 17:53 Plt Count 344 K/mm3 (140-440) 05/31/20 17:53 Lymph % (Auto) 42.7 % (13.4-35.0) H 05/31/20 17:53 [place] % (Auto) 8.3 % (0.0-7.3) H 05/31/20 17:53 Eos % (Auto) 1.4 % (0.0-4.3) 05/31/20 17:53 Baso % (Auto) 0.8 % (0.0-1.8) 05/31/20 17:53 Lymph # 3.0 K/mm3 (1.2-5.4) 05/31/20 17:53 [place] # 0.6 K/mm3 (0.0-0.8) 05/31/20 17:53 Eos # 0.1 K/mm3 (0.0-0.4) 05/31/20 17:53 Baso # 0.1 K/mm3 (0.0-0.1) 05/31/20 17:53 Seg Neutrophils % 46.8 % (40.0-70.0) 05/31/20 17:53 Seg Neutrophils # 3.3 K/mm3 (1.8-7.7) 05/31/20 17:53 Sodium 138 mmol/L (137-145) 05/31/20 17:53 Potassium 4.3 mmol/L (3.6-5.0) 05/31/20 17:53 Chloride 100.8 mmol/L (98-107) 05/31/20 17:53 Carbon Dioxide 25 mmol/L (22-30) 05/31/20 17:53 Anion Gap 17 mmol/L 05/31/20 17:53 BUN 11 mg/dL (7-17) 05/31/20 17:53 Creatinine 0.7 mg/dL (0.7-1.2) 05/31/20 17:53 Estimated GFR > 60 ml/min 05/31/20 17:53 BUN/Creatinine Ratio 16 % 05/31/20 17:53 Glucose 110 mg/dL (65-100) H 05/31/20 17:53 POC Glucose 120 (70-105) H 05/31/20 18:12 Hemoglobin A1c 5.3 % (4-6) 05/31/20 17:53 Calcium 9.1 mg/dL (8.4-10.2) 05/31/20 17:53 Total Bilirubin 0.80 mg/dL (0.1-1.2) 05/31/20 17:53 AST 15 units/L (5-40) 05/31/20 17:53 ALT < 5 units/L (7-56) L 05/31/20 17:53 Alkaline Phosphatase 112 units/L (35-129) 05/31/20 17:53 Total Protein 6.6 g/dL (6.3-8.2) 05/31/20 17:53 Albumin 3.8 g/dL (3.9-5) L 05/31/20 17:53 Albumin/Globulin Ratio 1.4 % 05/31/20 17:53 Triglycerides 137 mg/dL (2-149) 05/31/20 17:53 Cholesterol 217 mg/dL (50-199) H 05/31/20 17:53 LDL Cholesterol Direct 145 mg/dL (50-130) H 05/31/20 17:53 HDL Cholesterol 72 mg/dL (40-59) H 05/31/20 17:53 Cholesterol/HDL Ratio 3.01 % 05/31/20 17:53 TSH 3.330 mlU/mL (0.270-4.200) 05/31/20 17:53 Urine Color Yellow (Yellow) 05/31/20 18:06 Urine Turbidity Clear (Clear) 05/31/20 18:06 Urine pH 5.0 (5.0-7.0) 05/31/20 18:06 Ur Specific [place] 1.014 (1.003-1.030) 05/31/20 18:06 Urine Protein <15 mg/dl mg/dL (Negative) 05/31/20 18:06 Urine Glucose (UA) Neg mg/dL (Negative) 05/31/20 18:06 Urine Ketones Neg mg/dL (Negative) 05/31/20 18:06 Urine Blood Neg (Negative) 05/31/20 18:06 Urine Nitrite Neg (Negative) 05/31/20 18:06 Urine Bilirubin Neg (Negative) 05/31/20 18:06 Urine Urobilinogen < 2.0 mg/dL (<2.0) 05/31/20 18:06 Ur Leukocyte Esterase Neg (Negative) 05/31/20 18:06 Urine WBC (Auto) 4.0 /HPF (0.0-6.0) 05/31/20 18:06 Urine RBC (Auto) 1.0 /HPF (0.0-6.0) 05/31/20 18:06 U Epithel Cells (Auto) 4.0 /HPF (0-13.0) 05/31/20 18:06 Urine Bacteria (Auto) 1+ /HPF (Negative) 05/31/20 18:06 Urine Mucus Few /HPF 05/31/20 18:06 Negro/IV: Voiding Method Toilet Active Medications - Current Medications Current Medications: Generic Name Dose Route Start Last Admin Trade Name Freq PRN Reason Stop Dose Admin Albuterol 2.5 mg 06/01/20 09:55 Proventil IH Q4HRT PRN Shortness Of Breath Amiodarone HCl 200 mg 06/01/20 10:00 06/05/20 09:46 Cordarone PO 200 mg DAILY [facility] Administration Apixaban 5 mg 06/01/20 10:00 06/05/20 09:46 Eliquis PO 5 mg BID [facility] Administration Protocol Bupropion HCl 150 mg 06/01/20 10:00 06/05/20 09:45 Wellbutrin Sr PO 150 mg QAM [facility] Administration Cholecalciferol 1,000 unit 06/01/20 11:00 06/05/20 09:45 Vitamin D3 PO 1,000 unit DAILY [facility] Administration Lorazepam 1 mg 06/01/20 10:00 06/05/20 09:45 Ativan PO 1 mg DAILY [facility] Administration Melatonin 10 mg 06/05/20 22:00 Melatonin PO QHS [facility] Multivitamins 1 each 06/01/20 10:00 06/05/20 09:45 Theragran Tab PO 1 each QDAY [facility] Administration Nicotine 21 mg 06/01/20 10:00 06/05/20 09:45 Habitrol TD 21 mg QDAY [facility] Administration Risperidone 0.25 mg 06/01/20 10:00 06/05/20 09:45 Risperdal PO 0.25 mg BID [facility] Administration Trazodone HCl 50 mg 05/31/20 22:00 06/04/20 22:21 Desyrel PO Not Given QHS [facility] Ziprasidone 10 mg 05/31/20 16:21 Geodon IM Q6H PRN Agitation
[2020-06-05] MEDS: traZODone 50 MG TAB PO SCH (21:04)
[2020-06-05] MEDS: MELATONIN 5 MG TAB PO SCH (21:04)
--- NOTE | 2020-06-06 07:15 | Progress Note ---
Subjective Date of service: 06/06/20 Principal diagnosis: Dementia w/Behavioral Disturbance Subjective Comment: Nurse Note: Patient sit in the activity room, interacting well with her peers. Pt compliant with medications, denies si/hi and avh. Pt voiced feeling much better today. No acute distress noted. Will continue to monitor. PSYCH HPI Patient seen this AM, reports doing very well and feeling good but has been bored over the weekend because there was nothing interesting to do otherwise she denies having any other complaints. Reason for continued inpatient treatment: Planning for safety discharge today. MENTAL STATUS EXAMINATION General Appearance and Behavior: Age appropriate, good hygiene, wearing appropriate clothes, l good eye contact, cooperative politewith questioning. Cooperation: Participating/engaged Psychomotor Behavior: unremarkable and within normal limits Mood: Good Affect and affective range: congruent with mood Thought Process: Logical Thought Content: Within reality Speech: Normal volume, Regular rate and rhythm Intellectual Functioning: Average Suicidal Ideation: Denies SI Homicidal Ideation: Denies HI Impulse Control:Unimpaired Insight and Judgment: Normal insight and judgment Memory: extermination inspector memory intact, fair short term memory Attention: Normal Orientation: Alert, oriented Diagnoses: Assessment and Plan - Patient Problems (1) Dementia with behavioral disturbance Current Visit: Yes Status: Acute Treatment Plan melatonin 10 mg QHS. Continue current medications Patient will be admitted for inpatient psychiatric evaluation, medication adjustment and close monitoring The patient's behavior, mood, sleep and appetite will be closely monitored. Patient will be enrolled in individual and group therapeutic sessions and encouraged to attend. Patient will be provided with a safe and structured environment. Patient's physical health needs will be addressed by the Hospitalist. Hospitalist Consulted Labs including CBC, CMP, Lipid profile and Hemoglobin A1C ordered Social Assessment will be completed and the Oil Scout will work with patient and family to ensure a suitable and safe disposition Medication adjustment will be made as clinically indicated Usual Wellness [facility]/Preservation: - Start Trazodone 50 mg po QHS & 50 mg po QHS PRN between 10 PM & 2 AM for insomnia - Start Melatonin 5 mg po QHS to promote circadian rhythm - Start [place]-3 for brain health, reduce impulsivity, and as adjunctive treatment for mood disorder, continue upon discharge given overall benefits. - Start B1 prophylaxis with 200 mg po for 5 days The patient agreed on the treatment plan, understood the risk, benefit, alternative treatment, potential consequence of no treatment, and gave informed consent. Initial Certification This certifies that Galdino Peng is a 74y/o female who was admitted for Bipolar Disorder with Psychotic Features. Estimated period of time patient will need to remain in the hospital: [0] Plan for post-hospital care: [outpatient] Assessment and Plan - Patient Problems (1) Dementia with behavioral disturbance Current Visit: Yes Status: Acute Medications and Allergies Allergies Allergy/AdvReac Type Severity Reaction Status Date / Time metoclopramide [From Reglan] Allergy Unknown Verified 05/31/20 14:38 Home Medications Medication Instructions Recorded Confirmed Last Taken Type Albuterol Sulfate [Proair 90 mcg INHALATION Q6H PRN 05/31/20 05/31/20 Unknown History Respiclick] Amiodarone [Cordarone 200 MG TAB] 200 mg PO DAILY 05/31/20 05/31/20 Unknown History Apixaban [Eliquis] 5 mg PO BID 05/31/20 05/31/20 Unknown History Cholecalciferol Vit D3 [Vitamin D3 1,000 units PO DAILY 05/31/20 05/31/20 Unknown History 1,000 UNIT TAB] LORazepam [Ativan] 1 mg PO DAILY 05/31/20 05/31/20 Unknown History Multivitamin Tab [Multiple Vitamin 1 each PO QDAY 05/31/20 05/31/20 Unknown History TAB (Theragran)] Nicotine [Habitrol] 21 mg TD QDAY 05/31/20 05/31/20 05/31/20 10:00 History buPROPion SR [Wellbutrin Sr] 150 mg PO QAM 05/31/20 05/31/20 Unknown History Active Meds: Active Medications Albuterol (Proventil) 2.5 mg IH Q4HRT PRN PRN Reason: Shortness Of Breath Amiodarone HCl (Cordarone) 200 mg PO DAILY [facility] Last Admin: 06/05/20 09:46 Dose: 200 mg Documented by: Apixaban (Eliquis) 5 mg PO BID [facility]; Protocol Last Admin: 06/05/20 21:05 Dose: 5 mg Documented by: Bupropion HCl (Wellbutrin Sr) 150 mg PO QAM [facility] Last Admin: 06/05/20 09:45 Dose: 150 mg Documented by: Cholecalciferol (Vitamin D3) 1,000 unit PO DAILY [facility] Last Admin: 06/05/20 09:45 Dose: 1,000 unit Documented by: Lorazepam (Ativan) 1 mg PO DAILY [facility] Last Admin: 06/05/20 09:45 Dose: 1 mg Documented by: Melatonin (Melatonin) 10 mg PO QHS [facility] Last Admin: 06/05/20 21:04 Dose: 10 mg Documented by: Multivitamins (Theragran Tab) 1 each PO QDAY [facility] Last Admin: 06/05/20 09:45 Dose: 1 each Documented by: Nicotine (Habitrol) 21 mg TD QDAY [facility] Last Admin: 06/05/20 09:45 Dose: 21 mg Documented by: Risperidone (Risperdal) 0.25 mg PO BID [facility] Last Admin: 06/05/20 21:04 Dose: 0.25 mg Documented by: Trazodone HCl (Desyrel) 50 mg PO QHS [facility] Last Admin: 06/05/20 21:04 Dose: 50 mg Documented by: Ziprasidone (Geodon) 10 mg IM Q6H PRN PRN Reason: Agitation Results - Results Labs/Vitals: Laboratory Last Values WBC 6.9 K/mm3 (4.5-11.0) 05/31/20 17:53 RBC 4.54 M/mm3 (3.65-5.03) 05/31/20 17:53 Hgb 14.1 gm/dl (10.1-14.3) 05/31/20 17:53 Hct 43.3 % (30.3-42.9) H 05/31/20 17:53 MCV 95 fl (79-97) 05/31/20 17:53 MCH 31 pg (28-32) 05/31/20 17:53 MCHC 33 % (30-34) 05/31/20 17:53 RDW 15.2 % (13.2-15.2) 05/31/20 17:53 Plt Count 344 K/mm3 (140-440) 05/31/20 17:53 Lymph % (Auto) 42.7 % (13.4-35.0) H 05/31/20 17:53 [place] % (Auto) 8.3 % (0.0-7.3) H 05/31/20 17:53 Eos % (Auto) 1.4 % (0.0-4.3) 05/31/20 17:53 Baso % (Auto) 0.8 % (0.0-1.8) 05/31/20 17:53 Lymph # 3.0 K/mm3 (1.2-5.4) 05/31/20 17:53 [place] # 0.6 K/mm3 (0.0-0.8) 05/31/20 17:53 Eos # 0.1 K/mm3 (0.0-0.4) 05/31/20 17:53 Baso # 0.1 K/mm3 (0.0-0.1) 05/31/20 17:53 Seg Neutrophils % 46.8 % (40.0-70.0) 05/31/20 17:53 Seg Neutrophils # 3.3 K/mm3 (1.8-7.7) 05/31/20 17:53 Sodium 138 mmol/L (137-145) 05/31/20 17:53 Potassium 4.3 mmol/L (3.6-5.0) 05/31/20 17:53 Chloride 100.8 mmol/L (98-107) 05/31/20 17:53 Carbon Dioxide 25 mmol/L (22-30) 05/31/20 17:53 Anion Gap 17 mmol/L 05/31/20 17:53 BUN 11 mg/dL (7-17) 05/31/20 17:53 Creatinine 0.7 mg/dL (0.7-1.2) 05/31/20 17:53 Estimated GFR > 60 ml/min 05/31/20 17:53 BUN/Creatinine Ratio 16 % 05/31/20 17:53 Glucose 110 mg/dL (65-100) H 05/31/20 17:53 POC Glucose 120 (70-105) H 05/31/20 18:12 Hemoglobin A1c 5.3 % (4-6) 05/31/20 17:53 Calcium 9.1 mg/dL (8.4-10.2) 05/31/20 17:53 Total Bilirubin 0.80 mg/dL (0.1-1.2) 05/31/20 17:53 AST 15 units/L (5-40) 05/31/20 17:53 ALT < 5 units/L (7-56) L 05/31/20 17:53 Alkaline Phosphatase 112 units/L (35-129) 05/31/20 17:53 Total Protein 6.6 g/dL (6.3-8.2) 05/31/20 17:53 Albumin 3.8 g/dL (3.9-5) L 05/31/20 17:53 Albumin/Globulin Ratio 1.4 % 05/31/20 17:53 Triglycerides 137 mg/dL (2-149) 05/31/20 17:53 Cholesterol 217 mg/dL (50-199) H 05/31/20 17:53 LDL Cholesterol Direct 145 mg/dL (50-130) H 05/31/20 17:53 HDL Cholesterol 72 mg/dL (40-59) H 05/31/20 17:53 Cholesterol/HDL Ratio 3.01 % 05/31/20 17:53 TSH 3.330 mlU/mL (0.270-4.200) 05/31/20 17:53 Urine Color Yellow (Yellow) 05/31/20 18:06 Urine Turbidity Clear (Clear) 05/31/20 18:06 Urine pH 5.0 (5.0-7.0) 05/31/20 18:06 Ur Specific [place] 1.014 (1.003-1.030) 05/31/20 18:06 Urine Protein <15 mg/dl mg/dL (Negative) 05/31/20 18:06 Urine Glucose (UA) Neg mg/dL (Negative) 05/31/20 18:06 Urine Ketones Neg mg/dL (Negative) 05/31/20 18:06 Urine Blood Neg (Negative) 05/31/20 18:06 Urine Nitrite Neg (Negative) 05/31/20 18:06 Urine Bilirubin Neg (Negative) 05/31/20 18:06 Urine Urobilinogen < 2.0 mg/dL (<2.0) 05/31/20 18:06 Ur Leukocyte Esterase Neg (Negative) 05/31/20 18:06 Urine WBC (Auto) 4.0 /HPF (0.0-6.0) 05/31/20 18:06 Urine RBC (Auto) 1.0 /HPF (0.0-6.0) 05/31/20 18:06 U Epithel Cells (Auto) 4.0 /HPF (0-13.0) 05/31/20 18:06 Urine Bacteria (Auto) 1+ /HPF (Negative) 05/31/20 18:06 Urine Mucus Few /HPF 05/31/20 18:06 Last Vital Signs Temp 98.6 F 06/05/20 19:06 Pulse 78 06/05/20 19:06 Resp 18 06/05/20 19:06 BP 112/63 06/05/20 19:06 Pulse Ox 93 06/05/20 19:06
[2020-06-06] MEDS: NICOTINE 21 MG/24 HR PATCH TD SCH (09:13)
[2020-06-06] MEDS: LORazepam 1 MG TAB PO SCH (09:16)
[2020-06-06] MEDS: buPROPion SR 150 MG TAB PO SCH (09:16)
[2020-06-06] MEDS: risperiDONE 0.25 MG TAB PO SCH ×2 (09:16→21:16)
[2020-06-06] MEDS: APIXABAN 5 MG TAB PO SCH ×2 (09:16→21:16)
[2020-06-06] MEDS: MULTIVITAMINS ,THERAPEUTIC TAB PO SCH (09:16)
[2020-06-06] MEDS: AMIODARONE 200 MG TAB PO SCH (09:16)
--- NOTE | 2020-06-06 12:23 | XRay Report ---
CHEST 1 VIEW INDICATION / CLINICAL INFORMATION: Cough COMPARISON: None available. FINDINGS: SUPPORT DEVICES: None. HEART / MEDIASTINUM: No significant abnormality. LUNGS / PLEURA: No significant pulmonary or pleural abnormality. No pneumothorax. ADDITIONAL FINDINGS: Healed posttraumatic deformity identified within the proximal left humerus. IMPRESSION: 1. No acute findings. Signer Name: Nguyễn Macedo MD Signed: 06/06/2020 12:19 PM Workstation Name: [id number]
[2020-06-06] MEDS: CHOLECALCIFEROL (VIT D3) 1000 UNIT (25 mcg) TAB PO SCH (12:57)
[2020-06-06] MEDS: MELATONIN 5 MG TAB PO SCH (21:16)
[2020-06-06] MEDS: traZODone 50 MG TAB PO SCH (21:16)
--- NOTE | 2020-06-06 22:41 | Progress Note ---
Assessment and Plan - Patient Problems (1) Atrial fibrillation Current Visit: Yes Status: Acute Qualifiers: Atrial fibrillation type: permanent Qualified Code(s): I48.21 - Permanent atrial fibrillation Plan to address problem: continue Therapeutic anticoagulation, Amiodarone for rate control, supportive care. (2) Nicotine dependence Current Visit: Yes Status: Acute Plan to address problem: Supportive care. smoking cessation, behavior change counseling History Interval history: 74 YO Female with Atrial Fib on Therapeutic Anticoagulation and rate control therapy with Amiodarone, Nicotine Dependence, Dementia, Bipolar Disorder. Pt seen and evaluated in the day room. Pt denies any new complaints. Patient is resting comfortably. No reported nursing events. Pt denies pain. Patient is compliant with exam and interview. Hospitalist Physical - Constitutional Vitals: Temp Pulse Resp BP Pulse Ox 98.6 F 74 20 120/59 91 06/06/20 20:02 06/06/20 20:02 06/06/20 20:02 06/06/20 20:02 06/06/20 20:02 General appearance: Present: mild distress - EENT Eyes: Present: PERRL ENT: hearing intact - Neck Neck: Present: supple - Respiratory Respiratory: bilateral: CTA - Cardiovascular Rhythm: regular Heart Sounds: Present: S1 & S2 - Extremities Extremities: no ischemia Peripheral Pulses: within normal limits - Abdominal General gastrointestinal: soft, non-tender - Integumentary Integumentary: Present: clear, dry - Psychiatric Psychiatric: appropriate mood/affect, cooperative Results - Labs CBC & Chem 7: 05/31/20 17:53 05/31/20 17:53 Labs: Laboratory Last Values WBC 6.9 K/mm3 (4.5-11.0) 05/31/20 17:53 RBC 4.54 M/mm3 (3.65-5.03) 05/31/20 17:53 Hgb 14.1 gm/dl (10.1-14.3) 05/31/20 17:53 Hct 43.3 % (30.3-42.9) H 05/31/20 17:53 MCV 95 fl (79-97) 05/31/20 17:53 MCH 31 pg (28-32) 05/31/20 17:53 MCHC 33 % (30-34) 05/31/20 17:53 RDW 15.2 % (13.2-15.2) 05/31/20 17:53 Plt Count 344 K/mm3 (140-440) 05/31/20 17:53 Lymph % (Auto) 42.7 % (13.4-35.0) H 05/31/20 17:53 [place] % (Auto) 8.3 % (0.0-7.3) H 05/31/20 17:53 Eos % (Auto) 1.4 % (0.0-4.3) 05/31/20 17:53 Baso % (Auto) 0.8 % (0.0-1.8) 05/31/20 17:53 Lymph # 3.0 K/mm3 (1.2-5.4) 05/31/20 17:53 [place] # 0.6 K/mm3 (0.0-0.8) 05/31/20 17:53 Eos # 0.1 K/mm3 (0.0-0.4) 05/31/20 17:53 Baso # 0.1 K/mm3 (0.0-0.1) 05/31/20 17:53 Seg Neutrophils % 46.8 % (40.0-70.0) 05/31/20 17:53 Seg Neutrophils # 3.3 K/mm3 (1.8-7.7) 05/31/20 17:53 Sodium 138 mmol/L (137-145) 05/31/20 17:53 Potassium 4.3 mmol/L (3.6-5.0) 05/31/20 17:53 Chloride 100.8 mmol/L (98-107) 05/31/20 17:53 Carbon Dioxide 25 mmol/L (22-30) 05/31/20 17:53 Anion Gap 17 mmol/L 05/31/20 17:53 BUN 11 mg/dL (7-17) 05/31/20 17:53 Creatinine 0.7 mg/dL (0.7-1.2) 05/31/20 17:53 Estimated GFR > 60 ml/min 05/31/20 17:53 BUN/Creatinine Ratio 16 % 05/31/20 17:53 Glucose 110 mg/dL (65-100) H 05/31/20 17:53 POC Glucose 120 (70-105) H 05/31/20 18:12 Hemoglobin A1c 5.3 % (4-6) 05/31/20 17:53 Calcium 9.1 mg/dL (8.4-10.2) 05/31/20 17:53 Total Bilirubin 0.80 mg/dL (0.1-1.2) 05/31/20 17:53 AST 15 units/L (5-40) 05/31/20 17:53 ALT < 5 units/L (7-56) L 05/31/20 17:53 Alkaline Phosphatase 112 units/L (35-129) 05/31/20 17:53 Total Protein 6.6 g/dL (6.3-8.2) 05/31/20 17:53 Albumin 3.8 g/dL (3.9-5) L 05/31/20 17:53 Albumin/Globulin Ratio 1.4 % 05/31/20 17:53 Triglycerides 137 mg/dL (2-149) 05/31/20 17:53 Cholesterol 217 mg/dL (50-199) H 05/31/20 17:53 LDL Cholesterol Direct 145 mg/dL (50-130) H 05/31/20 17:53 HDL Cholesterol 72 mg/dL (40-59) H 05/31/20 17:53 Cholesterol/HDL Ratio 3.01 % 05/31/20 17:53 TSH 3.330 mlU/mL (0.270-4.200) 05/31/20 17:53 Urine Color Yellow (Yellow) 05/31/20 18:06 Urine Turbidity Clear (Clear) 05/31/20 18:06 Urine pH 5.0 (5.0-7.0) 05/31/20 18:06 Ur Specific [place] 1.014 (1.003-1.030) 05/31/20 18:06 Urine Protein <15 mg/dl mg/dL (Negative) 05/31/20 18:06 Urine Glucose (UA) Neg mg/dL (Negative) 05/31/20 18:06 Urine Ketones Neg mg/dL (Negative) 05/31/20 18:06 Urine Blood Neg (Negative) 05/31/20 18:06 Urine Nitrite Neg (Negative) 05/31/20 18:06 Urine Bilirubin Neg (Negative) 05/31/20 18:06 Urine Urobilinogen < 2.0 mg/dL (<2.0) 05/31/20 18:06 Ur Leukocyte Esterase Neg (Negative) 05/31/20 18:06 Urine WBC (Auto) 4.0 /HPF (0.0-6.0) 05/31/20 18:06 Urine RBC (Auto) 1.0 /HPF (0.0-6.0) 05/31/20 18:06 U Epithel Cells (Auto) 4.0 /HPF (0-13.0) 05/31/20 18:06 Urine Bacteria (Auto) 1+ /HPF (Negative) 05/31/20 18:06 Urine Mucus Few /HPF 05/31/20 18:06 Negro/IV: Voiding Method Toilet Active Medications - Current Medications Current Medications: Generic Name Dose Route Start Last Admin Trade Name Freq PRN Reason Stop Dose Admin Albuterol 2.5 mg 06/01/20 09:55 Proventil IH Q4HRT PRN Shortness Of Breath Amiodarone HCl 200 mg 06/01/20 10:00 06/06/20 09:16 Cordarone PO 200 mg DAILY [facility] Administration Apixaban 5 mg 06/01/20 10:00 06/06/20 21:16 Eliquis PO 5 mg BID [facility] Administration Protocol Bupropion HCl 150 mg 06/01/20 10:00 06/06/20 09:16 Wellbutrin Sr PO 150 mg QAM [facility] Administration Cholecalciferol 1,000 unit 06/01/20 11:00 06/06/20 12:57 Vitamin D3 PO 1,000 unit DAILY [facility] Administration Lorazepam 1 mg 06/01/20 10:00 06/06/20 09:16 Ativan PO 1 mg DAILY [facility] Administration Melatonin 10 mg 06/05/20 22:00 06/06/20 21:16 Melatonin PO 10 mg QHS [facility] Administration Multivitamins 1 each 06/01/20 10:00 06/06/20 09:16 Theragran Tab PO 1 each QDAY [facility] Administration Nicotine 21 mg 06/01/20 10:00 06/06/20 09:13 Habitrol TD 21 mg QDAY [facility] Administration Risperidone 0.25 mg 06/01/20 10:00 06/06/20 21:16 Risperdal PO 0.25 mg BID [facility] Administration Trazodone HCl 50 mg 05/31/20 22:00 06/06/20 21:16 Desyrel PO 50 mg QHS [facility] Administration Ziprasidone 10 mg 05/31/20 16:21 Geodon IM Q6H PRN Agitation
--- NOTE | 2020-06-07 07:23 | Progress Note ---
Subjective Date of service: 06/07/20 Principal diagnosis: Dementia w/Behavioral Disturbance Subjective Comment: Nurse Note: Patient remains pleasant and sociable with peers. She attended groups and participated well. She is medication compliant and exhibited appropriate behavior during Chest X-Ray on unit. Patient stated, "They can do all the x-rays they want but I'm not gonna stop smoking." She was reminded of consequences of smoking and Nicotine patch. Patient said, "I really just want to continue to smoke." Staff will continue to give positive encouragement. PSYCH HPI Patient seen this AM, smiley and asking when she would be going home. Patient says the only complaints she has is not having water in the sink in her room today because she couldnt wash her face, she denies SI, HI or AVH. Pt reports improved and stable mood and looking forward to leaving. Reason for continued inpatient treatment: Planning for discharge with social media marketer. MENTAL STATUS EXAMINATION General Appearance and Behavior: Age appropriate, good hygiene, wearing appropriate clothes, l good eye contact, cooperative politewith questioning. Cooperation: Participating/engaged Psychomotor Behavior: unremarkable and within normal limits Mood: Good Affect and affective range: congruent with mood Thought Process: Logical Thought Content: Within reality Speech: Normal volume, Regular rate and rhythm Intellectual Functioning: Average Suicidal Ideation: Denies SI Homicidal Ideation: Denies HI Impulse Control:Unimpaired Insight and Judgment: Normal insight and judgment Memory: long term care social worker memory intact, fair short term memory Attention: Normal Orientation: Alert, oriented Diagnoses: Assessment and Plan - Patient Problems (1) Dementia with behavioral disturbance Current Visit: Yes Status: Acute Treatment Plan melatonin 10 mg QHS. Continue current medications Patient will be admitted for inpatient psychiatric evaluation, medication adjustment and close monitoring The patient's behavior, mood, sleep and appetite will be closely monitored. Patient will be enrolled in individual and group therapeutic sessions and encouraged to attend. Patient will be provided with a safe and structured environment. Patient's physical health needs will be addressed by the Hospitalist. Hospitalist Consulted Labs including CBC, CMP, Lipid profile and Hemoglobin A1C ordered Social Assessment will be completed and the Lbd Teacher will work with patien t and family to ensure a suitable and safe disposition Medication adjustment will be made as clinically indicated Usual Wellness Restorationist/Preservation: - Start Trazodone 50 mg po QHS & 50 mg po QHS PRN between 10 PM & 2 AM for insomnia - Start Melatonin 5 mg po QHS to promote circadian rhythm - Start [place]-3 for brain health, reduce impulsivity, and as adjunctive treatment for mood disorder, continue upon discharge given overall benefits. - Start B1 prophylaxis with 200 mg po for 5 days The patient agreed on the treatment plan, understood the risk, benefit, alternative treatment, potential consequence of no treatment, and gave informed consent. Initial Certification This certifies that Galdino Peng is a 74y/o female who was admitted for Bipolar Disorder with Psychotic Features. Estimated period of time patient will need to remain in the hospital: [0] Plan for post-hospital care: [outpatient] Assessment and Plan - Patient Problems (1) Dementia with behavioral disturbance Current Visit: Yes Status: Acute Medications and Allergies Allergies Allergy/AdvReac Type Severity Reaction Status Date / Time metoclopramide [From Reglan] Allergy Unknown Verified 05/31/20 14:38 Home Medications Medication Instructions Recorded Confirmed Last Taken Type Albuterol Sulfate [Proair 90 mcg INHALATION Q6H PRN 05/31/20 05/31/20 Unknown History Respiclick] Amiodarone [Cordarone 200 MG TAB] 200 mg PO DAILY 05/31/20 05/31/20 Unknown History Apixaban [Eliquis] 5 mg PO BID 05/31/20 05/31/20 Unknown History Cholecalciferol Vit D3 [Vitamin D3 1,000 units PO DAILY 05/31/20 05/31/20 Unknown History 1,000 UNIT TAB] LORazepam [Ativan] 1 mg PO DAILY 05/31/20 05/31/20 Unknown History Multivitamin Tab [Multiple Vitamin 1 each PO QDAY 05/31/20 05/31/20 Unknown History TAB (Theragran)] Nicotine [Habitrol] 21 mg TD QDAY 05/31/20 05/31/20 05/31/20 10:00 History buPROPion SR [Wellbutrin Sr] 150 mg PO QAM 05/31/20 05/31/20 Unknown History Active Meds: Active Medications Albuterol (Proventil) 2.5 mg IH Q4HRT PRN PRN Reason: Shortness Of Breath Amiodarone HCl (Cordarone) 200 mg PO DAILY [facility] Last Admin: 06/06/20 09:16 Dose: 200 mg Documented by: Apixaban (Eliquis) 5 mg PO BID [facility]; Protocol Last Admin: 06/06/20 21:16 Dose: 5 mg Documented by: Bupropion HCl (Wellbutrin Sr) 150 mg PO QAM [facility] Last Admin: 06/06/20 09:16 Dose: 150 mg Documented by: Cholecalciferol (Vitamin D3) 1,000 unit PO DAILY [facility] Last Admin: 06/06/20 12:57 Dose: 1,000 unit Documented by: Lorazepam (Ativan) 1 mg PO DAILY [facility] Last Admin: 06/06/20 09:16 Dose: 1 mg Documented by: Melatonin (Melatonin) 10 mg PO QHS [facility] Last Admin: 06/06/20 21:16 Dose: 10 mg Documented by: Multivitamins (Theragran Tab) 1 each PO QDAY [facility] Last Admin: 06/06/20 09:16 Dose: 1 each Documented by: Nicotine (Habitrol) 21 mg TD QDAY [facility] Last Admin: 06/06/20 09:13 Dose: 21 mg Documented by: Risperidone (Risperdal) 0.25 mg PO BID [facility] Last Admin: 06/06/20 21:16 Dose: 0.25 mg Documented by: Trazodone HCl (Desyrel) 50 mg PO QHS [facility] Last Admin: 06/06/20 21:16 Dose: 50 mg Documented by: Ziprasidone (Geodon) 10 mg IM Q6H PRN PRN Reason: Agitation Results - Results Labs/Vitals: Laboratory Last Values WBC 6.9 K/mm3 (4.5-11.0) 05/31/20 17:53 RBC 4.54 M/mm3 (3.65-5.03) 05/31/20 17:53 Hgb 14.1 gm/dl (10.1-14.3) 05/31/20 17:53 Hct 43.3 % (30.3-42.9) H 05/31/20 17:53 MCV 95 fl (79-97) 05/31/20 17:53 MCH 31 pg (28-32) 05/31/20 17:53 MCHC 33 % (30-34) 05/31/20 17:53 RDW 15.2 % (13.2-15.2) 05/31/20 17:53 Plt Count 344 K/mm3 (140-440) 05/31/20 17:53 Lymph % (Auto) 42.7 % (13.4-35.0) H 05/31/20 17:53 [place] % (Auto) 8.3 % (0.0-7.3) H 05/31/20 17:53 Eos % (Auto) 1.4 % (0.0-4.3) 05/31/20 17:53 Baso % (Auto) 0.8 % (0.0-1.8) 05/31/20 17:53 Lymph # 3.0 K/mm3 (1.2-5.4) 05/31/20 17:53 [place] # 0.6 K/mm3 (0.0-0.8) 05/31/20 17:53 Eos # 0.1 K/mm3 (0.0-0.4) 05/31/20 17:53 Baso # 0.1 K/mm3 (0.0-0.1) 05/31/20 17:53 Seg Neutrophils % 46.8 % (40.0-70.0) 05/31/20 17:53 Seg Neutrophils # 3.3 K/mm3 (1.8-7.7) 05/31/20 17:53 Sodium 138 mmol/L (137-145) 05/31/20 17:53 Potassium 4.3 mmol/L (3.6-5.0) 05/31/20 17:53 Chloride 100.8 mmol/L (98-107) 05/31/20 17:53 Carbon Dioxide 25 mmol/L (22-30) 05/31/20 17:53 Anion Gap 17 mmol/L 05/31/20 17:53 BUN 11 mg/dL (7-17) 05/31/20 17:53 Creatinine 0.7 mg/dL (0.7-1.2) 05/31/20 17:53 Estimated GFR > 60 ml/min 05/31/20 17:53 BUN/Creatinine Ratio 16 % 05/31/20 17:53 Glucose 110 mg/dL (65-100) H 05/31/20 17:53 POC Glucose 120 (70-105) H 05/31/20 18:12 Hemoglobin A1c 5.3 % (4-6) 05/31/20 17:53 Calcium 9.1 mg/dL (8.4-10.2) 05/31/20 17:53 Total Bilirubin 0.80 mg/dL (0.1-1.2) 05/31/20 17:53 AST 15 units/L (5-40) 05/31/20 17:53 ALT < 5 units/L (7-56) L 05/31/20 17:53 Alkaline Phosphatase 112 units/L (35-129) 05/31/20 17:53 Total Protein 6.6 g/dL (6.3-8.2) 05/31/20 17:53 Albumin 3.8 g/dL (3.9-5) L 05/31/20 17:53 Albumin/Globulin Ratio 1.4 % 05/31/20 17:53 Triglycerides 137 mg/dL (2-149) 05/31/20 17:53 Cholesterol 217 mg/dL (50-199) H 05/31/20 17:53 LDL Cholesterol Direct 145 mg/dL (50-130) H 05/31/20 17:53 HDL Cholesterol 72 mg/dL (40-59) H 05/31/20 17:53 Cholesterol/HDL Ratio 3.01 % 05/31/20 17:53 TSH 3.330 mlU/mL (0.270-4.200) 05/31/20 17:53 Urine Color Yellow (Yellow) 05/31/20 18:06 Urine Turbidity Clear (Clear) 05/31/20 18:06 Urine pH 5.0 (5.0-7.0) 05/31/20 18:06 Ur Specific [place] 1.014 (1.003-1.030) 05/31/20 18:06 Urine Protein <15 mg/dl mg/dL (Negative) 05/31/20 18:06 Urine Glucose (UA) Neg mg/dL (Negative) 05/31/20 18:06 Urine Ketones Neg mg/dL (Negative) 05/31/20 18:06 Urine Blood Neg (Negative) 05/31/20 18:06 Urine Nitrite Neg (Negative) 05/31/20 18:06 Urine Bilirubin Neg (Negative) 05/31/20 18:06 Urine Urobilinogen < 2.0 mg/dL (<2.0) 05/31/20 18:06 Ur Leukocyte Esterase Neg (Negative) 05/31/20 18:06 Urine WBC (Auto) 4.0 /HPF (0.0-6.0) 05/31/20 18:06 Urine RBC (Auto) 1.0 /HPF (0.0-6.0) 05/31/20 18:06 U Epithel Cells (Auto) 4.0 /HPF (0-13.0) 05/31/20 18:06 Urine Bacteria (Auto) 1+ /HPF (Negative) 05/31/20 18:06 Urine Mucus Few /HPF 05/31/20 18:06 Last Vital Signs Temp 98.6 F 06/06/20 20:02 Pulse 74 06/06/20 20:02 Resp 20 06/06/20 20:02 BP 120/59 06/06/20 20:02 Pulse Ox 91 06/06/20 20:02
[2020-06-07] MEDS: MULTIVITAMINS ,THERAPEUTIC TAB PO SCH (10:00)
[2020-06-07] MEDS: APIXABAN 5 MG TAB PO SCH ×2 (10:00→22:27)
[2020-06-07] MEDS: AMIODARONE 200 MG TAB PO SCH (10:00)
[2020-06-07] MEDS: CHOLECALCIFEROL (VIT D3) 1000 UNIT (25 mcg) TAB PO SCH (10:00)
[2020-06-07] MEDS: LORazepam 1 MG TAB PO SCH (10:00)
[2020-06-07] MEDS: buPROPion SR 150 MG TAB PO SCH (10:00)
[2020-06-07] MEDS: risperiDONE 0.25 MG TAB PO SCH ×2 (10:00→22:28)
[2020-06-07] MEDS: NICOTINE 21 MG/24 HR PATCH TD SCH (10:03)
[2020-06-07] MEDS: traZODone 50 MG TAB PO SCH (22:27)
[2020-06-07] MEDS: MELATONIN 5 MG TAB PO SCH (22:28)
--- NOTE | 2020-06-08 07:15 | Progress Note ---
Subjective Date of service: 06/08/20 Principal diagnosis: Dementia w/Behavioral Disturbance Subjective Comment: Nurse Note: Patient has been pleasant and cooperative. She interacted well with peers and attended all groups. Patient took all of her medication and ate 100% of meals. Patient denies S/H/I and hallucinations. PSYCH HPI Patient is seen this AM, reports doing just fine and would like to have more coffee if possible. Patient says she would like to go home, denies SI, HI and AVH. Reason for continued inpatient treatment: Planning for discharge today MENTAL STATUS EXAMINATION General Appearance and Behavior: Age appropriate, good hygiene, wearing appropriate clothes, l good eye contact, cooperative politewith questioning. Cooperation: Participating/engaged Psychomotor Behavior: unremarkable and within normal limits Mood: Good Affect and affective range: congruent with mood Thought Process: Logical Thought Content: Within reality Speech: Normal volume, Regular rate and rhythm Intellectual Functioning: Average Suicidal Ideation: Denies SI Homicidal Ideation: Denies HI Impulse Control: Unimpaired Insight and Judgment: Normal insight and judgment Memory: emt intermediate memory intact, fair short term memory Attention: Normal Orientation: Alert, oriented Diagnoses: Assessment and Plan - Patient Problems (1) Dementia with behavioral disturbance Current Visit: Yes Status: Acute Treatment Plan melatonin 10 mg QHS. Continue current medications Patient will be admitted for inpatient psychiatric evaluation, medication adjustment and close monitoring The patient's behavior, mood, sleep and appetite will be closely monitored. Patient will be enrolled in individual and group therapeutic sessions and encouraged to attend. Patient will be provided with a safe and structured environment. Patient's physical health needs will be addressed by the Hospitalist. Hospitalist Consulted Labs including CBC, CMP, Lipid profile and Hemoglobin A1C ordered Social Assessment will be completed and the Crop Specialist will work with patient and family to ensure a suitable and safe disposition Medication adjustment will be made as clinically indicated Usual Wellness Faith/Preservation: - Start Trazodone 50 mg po QHS & 50 mg po QHS PRN between 10 PM & 2 AM for insomnia - Start Melatonin 5 mg po QHS to promote circadian rhythm - Start [place]-3 for brain health, reduce impulsivity, and as adjunctive treatment for mood disorder, continue upon discharge given overall benefits. - Start B1 prophylaxis with 200 mg po for 5 days The patient agreed on the treatment plan, understood the risk, benefit, alternative treatment, potential consequence of no treatment, and gave informed consent. Initial Certification This certifies that Galdino Peng is a 74y/o female who was admitted for Bipolar Disorder with Psychotic Features. Estimated period of time patient will need to remain in the hospital: [0] Plan for post-hospital care: [outpatient] Assessment and Plan - Patient Problems (1) Dementia with behavioral disturbance Current Visit: Yes Status: Acute Medications and Allergies Allergies Allergy/AdvReac Type Severity Reaction Status Date / Time metoclopramide [From Reglan] Allergy Unknown Verified 05/31/20 14:38 Home Medications Medication Instructions Recorded Confirmed Last Taken Type Albuterol Sulfate [Proair 90 mcg INHALATION Q6H PRN 05/31/20 05/31/20 Unknown History Respiclick] Amiodarone [Cordarone 200 MG TAB] 200 mg PO DAILY 05/31/20 05/31/20 Unknown History Apixaban [Eliquis] 5 mg PO BID 05/31/20 05/31/20 Unknown History Cholecalciferol Vit D3 [Vitamin D3 1,000 units PO DAILY 05/31/20 05/31/20 Unknown History 1,000 UNIT TAB] LORazepam [Ativan] 1 mg PO DAILY 05/31/20 05/31/20 Unknown History Multivitamin Tab [Multiple Vitamin 1 each PO QDAY 05/31/20 05/31/20 Unknown History TAB (Theragran)] Nicotine [Habitrol] 21 mg TD QDAY 05/31/20 05/31/20 05/31/20 10:00 History buPROPion SR [Wellbutrin Sr] 150 mg PO QAM 05/31/20 05/31/20 Unknown History Active Meds: Active Medications Albuterol (Proventil) 2.5 mg IH Q4HRT PRN PRN Reason: Shortness Of Breath Amiodarone HCl (Cordarone) 200 mg PO DAILY [facility] Last Admin: 06/07/20 10:00 Dose: 200 mg Documented by: Apixaban (Eliquis) 5 mg PO BID [facility]; Protocol Last Admin: 06/07/20 22:27 Dose: 5 mg Documented by: Bupropion HCl (Wellbutrin Sr) 150 mg PO QAM [facility] Last Admin: 06/07/20 10:00 Dose: 150 mg Documented by: Cholecalciferol (Vitamin D3) 1,000 unit PO DAILY [facility] Last Admin: 06/07/20 10:00 Dose: 1,000 unit Documented by: Lorazepam (Ativan) 1 mg PO DAILY [facility] Last Admin: 06/07/20 10:00 Dose: 1 mg Documented by: Melatonin (Melatonin) 10 mg PO QHS [facility] Last Admin: 06/07/20 22:28 Dose: 10 mg Documented by: Multivitamins (Theragran Tab) 1 each PO QDAY [facility] Last Admin: 06/07/20 10:00 Dose: 1 each Documented by: Nicotine (Habitrol) 21 mg TD QDAY [facility] Last Admin: 06/07/20 10:03 Dose: 21 mg Documented by: Risperidone (Risperdal) 0.25 mg PO BID [facility] Last Admin: 06/07/20 22:28 Dose: 0.25 mg Documented by: Trazodone HCl (Desyrel) 50 mg PO QHS [facility] Last Admin: 06/07/20 22:27 Dose: 50 mg Documented by: Ziprasidone (Geodon) 10 mg IM Q6H PRN PRN Reason: Agitation Results - Results Labs/Vitals: Laboratory Last Values WBC 6.9 K/mm3 (4.5-11.0) 05/31/20 17:53 RBC 4.54 M/mm3 (3.65-5.03) 05/31/20 17:53 Hgb 14.1 gm/dl (10.1-14.3) 05/31/20 17:53 Hct 43.3 % (30.3-42.9) H 05/31/20 17:53 MCV 95 fl (79-97) 05/31/20 17:53 MCH 31 pg (28-32) 05/31/20 17:53 MCHC 33 % (30-34) 05/31/20 17:53 RDW 15.2 % (13.2-15.2) 05/31/20 17:53 Plt Count 344 K/mm3 (140-440) 05/31/20 17:53 Lymph % (Auto) 42.7 % (13.4-35.0) H 05/31/20 17:53 [place] % (Auto) 8.3 % (0.0-7.3) H 05/31/20 17:53 Eos % (Auto) 1.4 % (0.0-4.3) 05/31/20 17:53 Baso % (Auto) 0.8 % (0.0-1.8) 05/31/20 17:53 Lymph # 3.0 K/mm3 (1.2-5.4) 05/31/20 17:53 [place] # 0.6 K/mm3 (0.0-0.8) 05/31/20 17:53 Eos # 0.1 K/mm3 (0.0-0.4) 05/31/20 17:53 Baso # 0.1 K/mm3 (0.0-0.1) 05/31/20 17:53 Seg Neutrophils % 46.8 % (40.0-70.0) 05/31/20 17:53 Seg Neutrophils # 3.3 K/mm3 (1.8-7.7) 05/31/20 17:53 Sodium 138 mmol/L (137-145) 05/31/20 17:53 Potassium 4.3 mmol/L (3.6-5.0) 05/31/20 17:53 Chloride 100.8 mmol/L (98-107) 05/31/20 17:53 Carbon Dioxide 25 mmol/L (22-30) 05/31/20 17:53 Anion Gap 17 mmol/L 05/31/20 17:53 BUN 11 mg/dL (7-17) 05/31/20 17:53 Creatinine 0.7 mg/dL (0.7-1.2) 05/31/20 17:53 Estimated GFR > 60 ml/min 05/31/20 17:53 BUN/Creatinine Ratio 16 % 05/31/20 17:53 Glucose 110 mg/dL (65-100) H 05/31/20 17:53 POC Glucose 120 (70-105) H 05/31/20 18:12 Hemoglobin A1c 5.3 % (4-6) 05/31/20 17:53 Calcium 9.1 mg/dL (8.4-10.2) 05/31/20 17:53 Total Bilirubin 0.80 mg/dL (0.1-1.2) 05/31/20 17:53 AST 15 units/L (5-40) 05/31/20 17:53 ALT < 5 units/L (7-56) L 05/31/20 17:53 Alkaline Phosphatase 112 units/L (35-129) 05/31/20 17:53 Total Protein 6.6 g/dL (6.3-8.2) 05/31/20 17:53 Albumin 3.8 g/dL (3.9-5) L 05/31/20 17:53 Albumin/Globulin Ratio 1.4 % 05/31/20 17:53 Triglycerides 137 mg/dL (2-149) 05/31/20 17:53 Cholesterol 217 mg/dL (50-199) H 05/31/20 17:53 LDL Cholesterol Direct 145 mg/dL (50-130) H 05/31/20 17:53 HDL Cholesterol 72 mg/dL (40-59) H 05/31/20 17:53 Cholesterol/HDL Ratio 3.01 % 05/31/20 17:53 TSH 3.330 mlU/mL (0.270-4.200) 05/31/20 17:53 Urine Color Yellow (Yellow) 05/31/20 18:06 Urine Turbidity Clear (Clear) 05/31/20 18:06 Urine pH 5.0 (5.0-7.0) 05/31/20 18:06 Ur Specific [place] 1.014 (1.003-1.030) 05/31/20 18:06 Urine Protein <15 mg/dl mg/dL (Negative) 05/31/20 18:06 Urine Glucose (UA) Neg mg/dL (Negative) 05/31/20 18:06 Urine Ketones Neg mg/dL (Negative) 05/31/20 18:06 Urine Blood Neg (Negative) 05/31/20 18:06 Urine Nitrite Neg (Negative) 05/31/20 18:06 Urine Bilirubin Neg (Negative) 05/31/20 18:06 Urine Urobilinogen < 2.0 mg/dL (<2.0) 05/31/20 18:06 Ur Leukocyte Esterase Neg (Negative) 05/31/20 18:06 Urine WBC (Auto) 4.0 /HPF (0.0-6.0) 05/31/20 18:06 Urine RBC (Auto) 1.0 /HPF (0.0-6.0) 05/31/20 18:06 U Epithel Cells (Auto) 4.0 /HPF (0-13.0) 05/31/20 18:06 Urine Bacteria (Auto) 1+ /HPF (Negative) 05/31/20 18:06 Urine Mucus Few /HPF 05/31/20 18:06 Coronavirus (PCR) Negative (Negative) 06/06/20 Unknown Last Vital Signs Temp 97.0 F L 06/07/20 08:21 Pulse 65 06/07/20 08:21 Resp 16 06/07/20 08:21 BP 134/72 06/07/20 08:21 Pulse Ox 91 06/07/20 08:21
[2020-06-08] MEDS: AMIODARONE 200 MG TAB PO SCH (09:42)
[2020-06-08] MEDS: APIXABAN 5 MG TAB PO SCH (09:42)
[2020-06-08] MEDS: CHOLECALCIFEROL (VIT D3) 1000 UNIT (25 mcg) TAB PO SCH (09:42)
[2020-06-08] MEDS: NICOTINE 21 MG/24 HR PATCH TD SCH (09:42)
[2020-06-08] MEDS: MULTIVITAMINS ,THERAPEUTIC TAB PO SCH (09:42)
[2020-06-08] MEDS: buPROPion SR 150 MG TAB PO SCH (09:42)
[2020-06-08] MEDS: risperiDONE 0.25 MG TAB PO SCH (09:42)
[2020-06-08] MEDS: LORazepam 1 MG TAB PO SCH (09:42)
[2020-06-08 10:32] VITALS: BP 106/59
--- NOTE | 2020-06-08 13:56 | Discharge Summary ---
Providers - Providers Date of Admission: 05/31/20 17:28 Date of discharge: 06/08/20 Attending physician: ROQUE MAYS MD 05/31/20 14:40 Consult to Physician [CONS] Routine Comment: Consulting Provider: ARIADNE HOPE Physician Instructions: Reason For Exam: manage medical conditions Primary care physician: JAYCEE ARSHAD Hospitalization Reason for admission: : Danger to others Condition: Good Hospital course: The patient was provided inpatient psychiatric treatment with safe and supportive environment, group/individual therapy, psychiatric medication, medication adjustment, adverse effect monitor, medical evaluation, medical treatment, social service assessment, social support meeting, placement assessment and psycho-education. The patients mood, cognition, behavior, motivation, compliance to treatment and appreciation on family/social support are improved and stabilized. At the time of discharge, the patient had no suicidal ideas, no homicidal ideas, no aggressive thoughts, no endangering behavior and no debilitating adverse effects. The patient agreed on the treatment plan, understood the risk, benefit, alternative treatment, potential consequence of no treatment, and gave informed consent. Disposition: DC-30 STILL A PATIENT Allergies/Adverse Reactions: Allergies metoclopramide [From Reglan] Allergy (Verified 05/31/20 14:38) Unknown Vital Signs: Last Vital Signs Temp 97.6 F 06/08/20 07:23 Pulse 69 06/08/20 07:23 Resp 18 06/08/20 07:23 BP 106/59 06/08/20 07:23 Pulse Ox 92 06/08/20 07:23 Last Lab: Laboratory Last Values WBC 6.9 K/mm3 (4.5-11.0) 05/31/20 17:53 RBC 4.54 M/mm3 (3.65-5.03) 05/31/20 17:53 Hgb 14.1 gm/dl (10.1-14.3) 05/31/20 17:53 Hct 43.3 % (30.3-42.9) H 05/31/20 17:53 MCV 95 fl (79-97) 05/31/20 17:53 MCH 31 pg (28-32) 05/31/20 17:53 MCHC 33 % (30-34) 05/31/20 17:53 RDW 15.2 % (13.2-15.2) 05/31/20 17:53 Plt Count 344 K/mm3 (140-440) 05/31/20 17:53 Lymph % (Auto) 42.7 % (13.4-35.0) H 05/31/20 17:53 [place] % (Auto) 8.3 % (0.0-7.3) H 05/31/20 17:53 Eos % (Auto) 1.4 % (0.0-4.3) 05/31/20 17:53 Baso % (Auto) 0.8 % (0.0-1.8) 05/31/20 17:53 Lymph # 3.0 K/mm3 (1.2-5.4) 05/31/20 17:53 [place] # 0.6 K/mm3 (0.0-0.8) 05/31/20 17:53 Eos # 0.1 K/mm3 (0.0-0.4) 05/31/20 17:53 Baso # 0.1 K/mm3 (0.0-0.1) 05/31/20 17:53 Seg Neutrophils % 46.8 % (40.0-70.0) 05/31/20 17:53 Seg Neutrophils # 3.3 K/mm3 (1.8-7.7) 05/31/20 17:53 Sodium 138 mmol/L (137-145) 05/31/20 17:53 Potassium 4.3 mmol/L (3.6-5.0) 05/31/20 17:53 Chloride 100.8 mmol/L (98-107) 05/31/20 17:53 Carbon Dioxide 25 mmol/L (22-30) 05/31/20 17:53 Anion Gap 17 mmol/L 05/31/20 17:53 BUN 11 mg/dL (7-17) 05/31/20 17:53 Creatinine 0.7 mg/dL (0.7-1.2) 05/31/20 17:53 Estimated GFR > 60 ml/min 05/31/20 17:53 BUN/Creatinine Ratio 16 % 05/31/20 17:53 Glucose 110 mg/dL (65-100) H 05/31/20 17:53 POC Glucose 120 (70-105) H 05/31/20 18:12 Hemoglobin A1c 5.3 % (4-6) 05/31/20 17:53 Calcium 9.1 mg/dL (8.4-10.2) 05/31/20 17:53 Total Bilirubin 0.80 mg/dL (0.1-1.2) 05/31/20 17:53 AST 15 units/L (5-40) 05/31/20 17:53 ALT < 5 units/L (7-56) L 05/31/20 17:53 Alkaline Phosphatase 112 units/L (35-129) 05/31/20 17:53 Total Protein 6.6 g/dL (6.3-8.2) 05/31/20 17:53 Albumin 3.8 g/dL (3.9-5) L 05/31/20 17:53 Albumin/Globulin Ratio 1.4 % 05/31/20 17:53 Triglycerides 137 mg/dL (2-149) 05/31/20 17:53 Cholesterol 217 mg/dL (50-199) H 05/31/20 17:53 LDL Cholesterol Direct 145 mg/dL (50-130) H 05/31/20 17:53 HDL Cholesterol 72 mg/dL (40-59) H 05/31/20 17:53 Cholesterol/HDL Ratio 3.01 % 05/31/20 17:53 TSH 3.330 mlU/mL (0.270-4.200) 05/31/20 17:53 Urine Color Yellow (Yellow) 05/31/20 18:06 Urine Turbidity Clear (Clear) 05/31/20 18:06 Urine pH 5.0 (5.0-7.0) 05/31/20 18:06 Ur Specific [place] 1.014 (1.003-1.030) 05/31/20 18:06 Urine Protein <15 mg/dl mg/dL (Negative) 05/31/20 18:06 Urine Glucose (UA) Neg mg/dL (Negative) 05/31/20 18:06 Urine Ketones Neg mg/dL (Negative) 05/31/20 18:06 Urine Blood Neg (Negative) 05/31/20 18:06 Urine Nitrite Neg (Negative) 05/31/20 18:06 Urine Bilirubin Neg (Negative) 05/31/20 18:06 Urine Urobilinogen < 2.0 mg/dL (<2.0) 05/31/20 18:06 Ur Leukocyte Esterase Neg (Negative) 05/31/20 18:06 Urine WBC (Auto) 4.0 /HPF (0.0-6.0) 05/31/20 18:06 Urine RBC (Auto) 1.0 /HPF (0.0-6.0) 05/31/20 18:06 U Epithel Cells (Auto) 4.0 /HPF (0-13.0) 05/31/20 18:06 Urine Bacteria (Auto) 1+ /HPF (Negative) 05/31/20 18:06 Urine Mucus Few /HPF 05/31/20 18:06 Coronavirus (PCR) Negative (Negative) 06/06/20 Unknown - Discharge Diagnoses (1) Dementia with behavioral disturbance Status: Acute Core Measure Documentation - Palliative Care Palliative Care/ Comfort Measures: Not Applicable - Core Measures Any of the following diagnoses?: none Exam - Constitutional Vitals: Temp Pulse Resp BP Pulse Ox 97.6 F 69 18 106/59 92 06/08/20 07:23 06/08/20 07:23 06/08/20 07:23 06/08/20 07:23 06/08/20 07:23 - EENT Eyes: Present: PERRL, EOM intact ENT: hearing intact, clear oral mucosa - Neck Neck: Present: supple, normal ROM - Respiratory Respiratory effort: normal - Abdominal Female genitourinary: Present: normal - Integumentary Integumentary: Present: clear, warm, dry Plan Care Plan Goals: Goals: Maintain good and stable mental health. Plan of Treatment: The patient should be compliant with medications, not to use drugs and not to drink alcohol. The patient understands that if suicidal ideas, homicidal ideas, or any endangering thoughts arise, the patient should immediately seek for emergent assistance including but not limited to crisis hot line and emergency room. Follow up with outpatient Psychiatrist and PCP within 7 - 14 days of discharge. Follow up with: JAYCEE ARSHAD DO [Primary Care Provider] - 7 Days Prescriptions: traZODone [Desyrel] 50 mg PO QHS #30 tablet Melatonin [Melatonin 10MG CAP] 10 mg PO QHS #30 capsule risperiDONE [RisperDAL] 1 mg PO BID #60 tablet
== END 2020-06-08 14:15 | disposition hospice, home (50) | DRG 884 ==
LOC: 3A 13:55 → UNDOADMIN 13:55 → 5A 17:28
PROVIDERS: ADMIT Psychiatry & Neurology Psychiatry; ATTEND Psychiatry & Neurology Psychiatry
DX: F03.91 Unspecified dementia, unspecified severity, with behavioral disturbance (principal); I48.21 Permanent atrial fibrillation; F31.4 Bipolar disorder, current episode depressed, severe, without psychotic features; Z79.01 Long term (current) use of anticoagulants; F17.210 Nicotine dependence, cigarettes, uncomplicated; Z88.8 Allergy status to other drugs, medicaments and biological substances; Z71.6 Tobacco abuse counseling
CPT/HCPCS: 36415; 71045; 80053; 80061; 81001; 82962; 83036; 84443; 85025; G0378; U0003-CS